=== PATIENT | female | born 1970 | race African-American/Black ===

== ENCOUNTER 2016-06-24 12:00 | Emergency (ER) | payer OTHER ==
[2016-06-24 12:06] VITALS: BP 168/104
[2016-06-24] MEDS ORDERED: HYDROCODONE/APAP 5/325MG TABLET. PO ONE (13:15)
--- NOTE | 2016-06-24 13:25 | PHYS DOC ---
Past Medical History Past Medical History: Hypertension, Other Additional Past Medical Histor: HTN Muscle Spasms Migranes left wound Past Surgical History: No Surgical History Alcohol Use: None Drug Use: None Adult General Chief Complaint Chief Complaint: LOWER EXT PAIN HPI HPI Patient is a 45 year old female presents to the emergency department after being seen at [facility] wound care today stating that she is having increased pain in her left lower leg. Patient states that she's had this wound for a while in which she was first being seen at [facility]. She was brought here to our emergency department earlier in the month of June for altered mental status. She was then referred at discharge to our wound care clinic. She been placed on Augmentin at discharge on June 13. Patient states that the Augmentin has caused her to have an upset stomach in which she's been unable to take the medication. Patient states she stopped taking the medication yesterday area she still has approximately 2 days with the medicine left and the antibiotics. Patient has also been seen by primary care physician on 06/16 and had some tramadol filled in which patient states is not taking care of the pain medication. Review of Systems Review of Systems Constitutional: Denies fever or chills [] Eyes: Denies change in visual acuity, redness, or eye pain [] HENT: Denies nasal congestion or sore throat [] Respiratory: Denies cough or shortness of breath [] Cardiovascular: No additional information not addressed in HPI [] GI: Denies abdominal pain, nausea, vomiting, bloody stools or diarrhea [] : Denies dysuria or hematuria [] Musculoskeletal: Denies back pain or joint pain [] Integument: Denies rash or skin lesions. Wound to the left lower leg with increased pain and discomfort. Neurologic: Denies headache, focal weakness or sensory changes [] Current Medications Current Medications Current Medications Medications (Trade) Dose Ordered Sig/German Start Time Stop Time Status Last Admin Dose Admin Acetaminophen/ Hydrocodone Bitart (Lortab 5/325) 2 tab 1X ONCE 06/24/16 13:15 06/24/16 13:16 DC 06/24/16 13:08 2 TAB Allergies Allergies Allergies Coded Allergies Type Severity Reaction Last Updated Verified sumatriptan Adverse Reaction Unknown 09/09/15 Yes Physical Exam Physical Exam Constitutional: Well developed, well nourished, no acute distress, non-toxic appearance. [] HENT: Normocephalic, atraumatic, bilateral external ears normal, oropharynx moist, no oral exudates, nose normal. [] Eyes: PERRLA, EOMI, conjunctiva normal, no discharge. [] Neck: Normal range of motion, no tenderness, supple, no stridor. [] Cardiovascular:Heart rate regular rhythm Lungs & Thorax: No respiratory distress noted. Skin: Warm, dry, no erythema, no rash. [] Back: No tenderness Extremities: No tenderness, no cyanosis, no clubbing, ROM intact, no edema. Patient with a significant wound to the left lower leg that had been seen at the wound care center today. No drainage or discharge coming from the site. Neurologic: Alert and oriented X 3, normal motor function, normal sensory function, no focal deficits noted. [] Psychologic: Affect normal, judgement normal, mood normal. [] Current Patient Data Vital Signs Vital Signs Date Time Temp Pulse Resp B/P Pulse Ox O2 Delivery O2 Flow Rate FiO2 06/24/16 12:06 98.6 93 18 100 Room Air 98.6 EKG EKG [] Radiology/Procedures Radiology/Procedures [] Course & Med Decision Making Course & Med Decision Making Pertinent Labs and Imaging studies reviewed. (See chart for details) Spoke with Dr. Garcia the wound care physician. He recommends that the patient continue with Augmentin. He also states that he has referred the patient back to her primary care physician for further pain control as she has been seeking pain medication from other physicians. Spoke with patient in regards to following up with her primary care physician in regards to further pain medication and pain management. Patient has tramadol at home in which she had filled on 411 and had enough for 30 days. Patient will be discharged home after receiving 2 hydrocodone's here in the emergency department. She'll be discharged home in stable condition with recommendations to use Aleve or ibuprofen for pain and discomfort also recommended elevation. Patient agrees with discharge instructions treatment regimens and follow-up recommendations. [] Dragon Disclaimer Dragon Disclaimer This electronic medical record was generated, in whole or in part, using a voice recognition dictation system. Departure Departure Impression: Primary Impression: Pain management Disposition: HOME, SELF-CARE Condition: STABLE Referrals: UNKNOWN PCP NAME (PCP) Patient Instructions: Chronic Pain Management-Brief Additional Instructions: Activity as tolerated. Medication as prescribed. You have been prescribed Augmentin when you were discharged on 06/[facility] would like you to continue taking the antibiotic. You were prescribed tramadol from a primary care physician on June 16. Continue with the pain medication as needed. You may also use Aleve or ibuprofen for pain. Elevation as much as possible. Follow-up through primary care physician within the next 3-5 days. Return back to emergency prior signs symptoms of become worse. BERNA COX OIL SPECULATOR Jun 24, 2016 13:25
== END 2016-06-24 13:32 | disposition home or self-care (01) ==
LOC: ER 12:00
DX: M79.662 Pain in left lower leg (principal); I10 Essential (primary) hypertension; G43.909 Migraine, unspecified, not intractable, without status migrainosus; Z88.8 Allergy status to other drugs, medicaments and biological substances
CPT/HCPCS: 99282

== ENCOUNTER → 2016-06-24 | Outpatient (CLI) | payer OTHER ==
[2016-06-13 16:35] VITALS: BP 152/110
[~2016-06-24] MED LIST: ACET-704 PO; AMLO5TAB2 PO; AMOX1TAB11 PO; BENA1TAB6 PO; CARI350T PO; CARV3.122 PO; CLOB15CR2 TP; COLL30OI TP; DOXY100C14 PO; GABA-586 PO; HYDR-971 PO; LISI1TAB7 PO; MUPI22OI2 TP; NAPR500T3 PO; NAPR550T PO; PREG50CA PO; PROP40TA PO; PROVENTIL HFA6.7 GM IH; SULF1TAB24 PO; SUMA50TA3 PO; TRAM50TA PO
== END | disposition home or self-care (01) ==
LOC: PMGWOUND 10:35
PROVIDERS: ATTEND Preventive Medicine Undersea and Hyperbaric Medicine
DX: S81.802D Unspecified open wound, left lower leg, subsequent encounter (principal); I10 Essential (primary) hypertension; X58.XXXD Exposure to other specified factors, subsequent encounter
CPT/HCPCS: 97597; 97598

== ENCOUNTER 2016-08-29 19:49 | Emergency (ER) | payer OTHER ==
[~2016-08-29] VITALS: Ht 170.2 cm; Wt 70.8 kg
[2016-08-29 19:54] VITALS: BP 140/83
--- NOTE | 2016-08-29 20:22 | PHYS DOC ---
Past Medical History Past Medical History: Hypertension, Other Additional Past Medical Histor: HTN Muscle Spasms Migranes left wound Past Surgical History: No Surgical History Alcohol Use: None Drug Use: None Adult General Chief Complaint Chief Complaint: MEDICATION REFILL HPI HPI Patient is a 45 year old female presents to the emergency department stating that last night she became lightheaded and dizzy at home and had poor her tramadol down the sink. Patient states that she has had no further lightheadedness and dizziness. She denies any syncopal episodes. Patient states that since she's not been taking her tramadol she has been hot and sweaty and has had a little bit of shakiness. Patient states that she has been on tramadol since she was 21 years old. Patient denies any fever, nausea or vomiting. She does however state that she's had some chills. Review of Systems Review of Systems Constitutional: Denies fever or chills [] Eyes: Denies change in visual acuity, redness, or eye pain [] HENT: Denies nasal congestion or sore throat [] Respiratory: Denies cough or shortness of breath [] Cardiovascular: No additional information not addressed in HPI [] GI: Denies abdominal pain, nausea, vomiting, bloody stools or diarrhea [] : Denies dysuria or hematuria [] Musculoskeletal: Denies back pain or joint pain [] Integument: Denies rash or skin lesions [] Neurologic: Denies headache, focal weakness or sensory changes [] Endocrine: Denies polyuria or polydipsia [] Patient states that she is having withdrawal symptoms from Ultram. Allergies Allergies Allergies Coded Allergies Type Severity Reaction Last Updated Verified sumatriptan Adverse Reaction Unknown 09/09/15 Yes Physical Exam Physical Exam Constitutional: Well developed, well nourished, no acute distress, non-toxic appearance. [] HENT: Normocephalic, atraumatic, bilateral external ears normal, oropharynx moist, no oral exudates, nose normal. [] Eyes: PERRLA, EOMI, conjunctiva normal, no discharge. [] Neck: Normal range of motion, no tenderness, supple, no stridor. [] Cardiovascular:Heart rate regular rhythm, no murmur [] Lungs & Thorax: Bilateral breath sounds clear to auscultation [] Skin: Warm, dry, no erythema, no rash. [] Back: No tenderness Extremities: No tenderness, no cyanosis, no clubbing, ROM intact, no edema. [] Neurologic: Alert and oriented X 3, normal motor function, normal sensory function, no focal deficits noted. [] Psychologic: Affect normal, judgement normal, mood normal. [] Current Patient Data Vital Signs Vital Signs Date Time Temp Pulse Resp B/P (MAP) Pulse Ox O2 Delivery O2 Flow Rate FiO2 08/29/16 19:54 98.6 70 16 97 Room Air 98.6 EKG EKG [] Radiology/Procedures Radiology/Procedures [] Course & Med Decision Making Course & Med Decision Making Pertinent Labs and Imaging studies reviewed. (See chart for details) Patient is alert and oriented at this time. She states that she has had a headache since she has not been taking the tramadol. She states that she has tried ibuprofen Tylenol and Excedrin with no relief. Patient was instructed we would provide her with Ativan here in the emergency department. With recommendations to follow up with her primary care physician on Wednesday. Patient was provided with signs and symptoms to return back to the emergency department. Patient will be discharged home in stable condition signs and symptoms to return back to the emergency department have been provided. [] Dragon Disclaimer Dragon Disclaimer This electronic medical record was generated, in whole or in part, using a voice recognition dictation system. Departure Departure Impression: Primary Impression: Medication refill Additional Impression: Medication withdrawal Disposition: HOME, SELF-CARE Condition: STABLE Referrals: NO PCP (PCP) Patient Instructions: Medication Refill, Emergency Department, Narcotic Withdrawal-Brief Additional Instructions: Activity as tolerated. Medications as prescribed. You have been provided Ativan here in the emergency department. Follow-up to primary care physician Wednesday. Return back to emergency prior signs and symptoms of become worse. Problem Qualifiers BERNA COX PROJECT BUYER Aug 29, 2016 20:22
[2016-08-29] MEDS ORDERED: LORazepam 1 MG TABLET PO ONE (20:30)
== END 2016-08-29 20:49 | disposition home or self-care (01) ==
LOC: ER 19:49
DX: Z76.0 Encounter for issue of repeat prescription (principal); F15.93 Other stimulant use, unspecified with withdrawal; R51 Headache; I10 Essential (primary) hypertension; Z88.8 Allergy status to other drugs, medicaments and biological substances
CPT/HCPCS: 99283

== ENCOUNTER 2016-08-31 06:11 | Emergency (ER) | payer OTHER ==
[~2016-08-31] VITALS: Ht 170.2 cm; Wt 70.8 kg
--- NOTE | 2016-08-31 06:22 | PHYS DOC ---
Past Medical History Past Medical History: Hypertension, Other Additional Past Medical Histor: HTN Muscle Spasms Migranes left wound Past Surgical History: No Surgical History Alcohol Use: None Drug Use: None Adult General Chief Complaint Chief Complaint: GENERALIZED BODY ACHES [facility] HPI Patient is a 45 year old -Iranian [place] female who presents with prescription refill. She states that she was here 2 nights ago and lost her prescription of tramadol down the sink when she is trying to take it. She states she felt very dizzy and when the dizziness resolved her pills fell out of her hand and down the sink. She states she can't get into see her primary care physician until September 09. She states she's been on tramadol since the age of 21 for her headaches and this is why she presents today. She states she's tried Tylenol, Excedrin, Advil without any relief. She states is her chronic headaches bitemporal area and then beside her ears. She states this headache that she has daily and that tramadol is the only thing that takes care of her headache. She states in the past she's been on oxycodone for back pain and this doesn't resolve her headaches it's only tramadol. She denies any fevers chills nausea or vomiting. She states when she was here the other day the nurse practitioner could not write a prescription for tramadol also she had come back this morning to get it. She denies any other symptoms such as fevers, chills, syncope, nuchal rigidity, confusion, chest pain abdominal pain or shortness of breath. Review of Systems Review of Systems Constitutional: Denies fever or chills [] Eyes: Denies change in visual acuity, redness, or eye pain [] HENT: Denies nasal congestion or sore throat [] Respiratory: Denies cough or shortness of breath [] Cardiovascular: No additional information not addressed in HPI [] GI: Denies abdominal pain, nausea, vomiting, bloody stools or diarrhea [] : Denies dysuria or hematuria [] Musculoskeletal: Denies back pain or joint pain [] Integument: Denies rash or skin lesions [] Neurologic: Denies focal weakness or sensory changes, positive for headaches Endocrine: Denies polyuria or polydipsia [] Current Medications Current Medications Current Medications Medications (Trade) Dose Ordered Sig/German Start Time Stop Time Status Last Admin Dose Admin Potassium Chloride (Klor-Con) 40 meq 1X ONCE 08/31/16 07:45 08/31/16 07:47 DC 08/31/16 07:50 40 MEQ Tramadol HCl (Ultram) 50 mg 1X ONCE 08/31/16 07:15 08/31/16 07:16 DC 08/31/16 07:12 50 MG Allergies Allergies Allergies Coded Allergies Type Severity Reaction Last Updated Verified sumatriptan Adverse Reaction Unknown 09/09/15 Yes Physical Exam Physical Exam Constitutional: Well developed, well nourished, no acute distress, non-toxic appearance. [] HENT: Normocephalic, atraumatic, bilateral external ears normal, oropharynx moist, no oral exudates, nose normal. [] Eyes: PERRLA, EOMI, conjunctiva normal, no discharge. [] Neck: Normal range of motion, no tenderness, supple, no stridor. [] Cardiovascular:Heart rate regular rhythm, no murmur [] Lungs & Thorax: Bilateral breath sounds clear to auscultation [] Abdomen: Bowel sounds normal, soft, no tenderness, no masses, no pulsatile masses. [] Skin: Warm, dry, no erythema, no rash. [] Back: No tenderness, no CVA tenderness. [] Extremities: No tenderness, no cyanosis, no clubbing, ROM intact, no edema. [] Neurologic: Alert and oriented X 3, normal motor function, normal sensory function, no focal deficits noted. [] Psychologic: Affect normal, judgement normal, mood normal. [] Current Patient Data Vital Signs Vital Signs Date Time Temp Pulse Resp B/P (MAP) Pulse Ox O2 Delivery O2 Flow Rate FiO2 08/31/16 07:12 18 98 08/31/16 07:11 91 159/106 (123) Room Air 08/31/16 06:17 98.2 98.2 Lab Values Laboratory Tests Test 08/31/16 05:51 08/31/16 06:41 08/31/16 06:50 POC Urine HCG, Qualitative Hcg negative (Negative) Urine Color Straw Urine Clarity Clear Urine pH 7.0 Urine Specific [place] 1.010 Urine Protein 100 mg/dL (NEG-TRACE) Urine Glucose (UA) Negative mg/dL (NEG) Urine Ketones (Stick) Negative mg/dL (NEG) Urine Blood Negative (NEG) Urine Nitrite Negative (NEG) Urine Bilirubin Negative (NEG) Urine Urobilinogen Dipstick 0.2 mg/dL (0.2 mg/dL) Urine Leukocyte Esterase Negative (NEG) Urine RBC 0 /HPF (0-2) Urine WBC 0 /HPF (0-4) Urine Squamous Epithelial Cells Few /LPF Urine Bacteria 0 /HPF (0-FEW) Urine Opiates Screen Neg (NEG) Urine Methadone Screen Neg (NEG) Urine Barbiturates Neg (NEG) Urine Phencyclidine Screen Neg (NEG) Urine Amphetamine/Methamphetamine Neg (NEG) Urine Benzodiazepines Screen Neg (NEG) Urine Cocaine Screen Neg (NEG) Urine Cannabinoids Screen Neg (NEG) Urine Ethyl Alcohol Neg (NEG) White Blood Count 13.3 x10^3/uL (4.0-11.0) H Red Blood Count 4.04 x10^6/uL (3.50-5.40) Hemoglobin 12.7 g/dL (12.0-15.5) Hematocrit 38.1 % (36.0-47.0) Mean Corpuscular Volume 95 fL (79-100) Mean Corpuscular Hemoglobin 31 pg (25-35) Mean Corpuscular Hemoglobin Concent 33 g/dL (31-37) Red Cell Distribution Width 15.3 % (11.5-14.5) H Platelet Count 308 x10^3/uL (140-400) Neutrophils (%) (Auto) 75 % (31-73) H Lymphocytes (%) (Auto) 15 % (24-48) L Monocytes (%) (Auto) 8 % (0-9) Eosinophils (%) (Auto) 2 % (0-3) Basophils (%) (Auto) 1 % (0-3) Neutrophils # (Auto) 10.0 x10^3uL (1.8-7.7) H Lymphocytes # (Auto) 2.0 x10^3/uL (1.0-4.8) Monocytes # (Auto) 1.0 x10^3/uL (0.0-1.1) Eosinophils # (Auto) 0.2 x10^3/uL (0.0-0.7) Basophils # (Auto) 0.1 x10^3/uL (0.0-0.2) Sodium Level 139 mmol/L (136-145) Potassium Level 2.5 mmol/L (3.5-5.1) *L Chloride Level 99 mmol/L (98-107) Carbon Dioxide Level 27 mmol/L (21-32) Anion Gap 13 (6-14) Blood Urea Nitrogen 8 mg/dL (7-20) Creatinine 1.0 mg/dL (0.6-1.0) Estimated GFR (Cockcroft-Gault) 72.5 Glucose Level 110 mg/dL (70-99) H Calcium Level 10.3 mg/dL (8.5-10.1) H Magnesium Level 2.0 mg/dL (1.8-2.4) Total Bilirubin 0.4 mg/dL (0.2-1.0) Direct Bilirubin 0.1 mg/dL (0.0-0.2) Aspartate Amino Transferase (AST) 18 U/L (15-37) Alanine Aminotransferase (ALT) 12 U/L (14-59) L Alkaline Phosphatase 80 U/L (46-116) Creatine Kinase 97 U/L (26-192) Creatine Kinase MB (Mass) 0.6 ng/mL (0.0-3.6) Creatine Kinase MB Relative Index 0.6 % (0-4) Troponin I Quantitative 0.046 ng/mL (0.000-0.055) UU-Kyv-J-Type Natriuretic Peptide 91 pg/mL (0-124) Total Protein 9.6 g/dL (6.4-8.2) H Albumin 3.6 g/dL (3.4-5.0) Lipase 101 U/L (73-393) Thyroid Stimulating Hormone (TSH) 1.415 uIU/mL (0.358-3.74) Laboratory Tests 08/31/16 06:50 Laboratory Tests 08/31/16 06:50 EKG EKG EKG shows sinus tachycardia with a rate of 107 bpm with SC depressions in V4 V5 V6, T-wave inversions in 23 aVF, normal axis, QTC 400 ms, EKG similar to previous 3 EKGs performed here. Radiology/Procedures Radiology/Procedures [] Impressions: Hypokalemia Headache Course & Med Decision Making Course & Med Decision Making Pertinent Labs and Imaging studies reviewed. (See chart for details) Patient presents with pressures refill was tachycardic in the 130s on a initially presented. EKG shows a rate of 107 and she is only complaining of her mild headache and being out of tramadol. Her potassium is 2.5 with a normal magnesium. I have recommended admission for potassium replacement the patient is refusing. She received 40 mEq by mouth of potassium chloride and is being discharged with a prescription for additional 40 mEq of potassium chloride tomorrow. Patient is instructed return back to ER if she changes her mind. She is also instructed return tomorrow to the ER for repeat BMP. Her tramadol was also filled with 30 tablets of 50 mg every 6 hours when necessary pain/headache. Dragon Disclaimer Dragon Disclaimer This electronic medical record was generated, in whole or in part, using a voice recognition dictation system. Departure Departure Impression: Primary Impression: Hypokalemia Disposition: AGAINST MEDICAL ADVICE Condition: STABLE Referrals: NO PCP (PCP) Patient Instructions: Hypokalemia Additional Instructions: Your potassium level is critically low. I recommend that he be admitted to the hospital and have this replaced. You are refusing to be admitted and are leaving AGAINST MEDICAL ADVICE. Your potassium level is seriously low and you can have serious complications if this isn't replaced appropriately and properly. Since you refusing to be admitted the hospital I did give you some oral potassium pills to take and a prescription to take tomorrow also. You should return tomorrow to have your labs repeated in the ER. Return sooner if you feel lightheaded, dizzy, chest pain, have confusion or any other concerns. Scripts Tramadol Hcl (TRAMADOL HCL) 50 Mg Tablet 1 TAB PO PRN Q6HRS Y for HEADACHE, #30 TAB Prov: CLAY MONTANO MD 08/31/16 Potassium Chloride (POTASSIUM CHLORIDE) 20 Meq Tablet.er 40 MEQ PO 1X, #2 TAB.SR Prov: CLAY MONTANO MD 08/31/16 CLAY MONTANO MD Aug 31, 2016 06:22
--- NOTE | 2016-08-31 06:46 | EKG ---
[facility] [address] [place] [address] Test Date: 2016-08-31 Test Time: 06:32:56 Pat Name: SONDRA TENORIO Department: Room: Gender: F Collection Administrator: : 1970 Requested By: CLAY MONTANO Order Number: [id number] Reading MD: Simran Levine Measurements Intervals [place] Rate: 107 P: 65 IN: 118 QRS: 59 QRSD: 90 T: -92 QT: 296 QTc: 400 Interpretive Statements SINUS TACHYCARDIA LEFT ATRIAL ABNORMALITY LVH WITH REPOLARIZATION ABNORMALITY ALSO CONSIDER MYOCARDIAL ISCHEMIA Electronically Signed On 08-31-2016 20:55:31 CDT by Simran Levine
[2016-08-31 07:02] LABS: BASO # 0.1 x10^3/uL (0.0-0.2); BASO % 1 % (0-3); EOS % 2 % (0-3); HEMATOCRIT 38.1 % (36.0-47.0); HEMOGLOBIN 12.7 g/dL (12.0-15.5); LYMPH % 15 % (24-48); MEAN CORPUSCULAR HEMOGLOBIN 31 pg (25-35); MEAN CORPUSCULAR HGB CONC 33 g/dL (31-37); MEAN CORPUSCULAR VOLUME 95 fL (79-100); MONO % 8 % (0-9); NEUT % 75 % (31-73); PLATELET COUNT 308 x10^3/uL (140-400); RED BLOOD COUNT 4.04 x10^6/uL (3.50-5.40); RED CELL DISTRIBUTION WIDTH 15.3 % (11.5-14.5); WHITE BLOOD COUNT 13.3 x10^3/uL (4.0-11.0)
[2016-08-31 07:11] VITALS: BP 159/106
[2016-08-31 07:12] LABS: BACTERIA,URINE 0 /HPF (0-FEW); BARBITURATES NEG (NEG); BENZODIAZEPINES NEG (NEG); BILIRUBIN,URINE NEGATIVE (NEG); CANNABINOIDS NEG (NEG); COCAINE NEG (NEG); GLUCOSE,URINE NEGATIVE (NEG); METHADONE NEG (NEG); NITRITE,URINE NEGATIVE (NEG); OPIATES NEG (NEG); PHENCYCLIDINE NEG (NEG); PROTEIN,URINE 100 mg/dL (NEG-TRACE); RBC,URINE 0 /HPF (0-2); SQUAMOUS EPITHELIAL CELL,UR FEW /LPF; UROBILINOGEN,URINE 0.2 mg/dL (0.2 mg/dL); WBC,URINE 0 /HPF (0-4)
[2016-08-31] MEDS ORDERED: traMADol 50 MG TABLET PO ONE (07:15)
[2016-08-31 07:23] LABS: ALBUMIN 3.6 g/dL (3.4-5.0); CALCIUM 10.3 mg/dL (8.5-10.1); DIRECT BILIRUBIN 0.1 mg/dL (0.0-0.2); GFR 72.5; TOTAL BILIRUBIN 0.4 mg/dL (0.2-1.0); TOTAL PROTEIN 9.6 g/dL (6.4-8.2)
[2016-08-31 07:26] LABS: CKMB MASS 0.6 ng/mL (0.0-3.6); POTASSIUM 2.5 mmol/L (3.5-5.1)
[2016-08-31] MEDS ORDERED: POTASSIUM CHLORIDE 20 MEQ TABLET.ER. PO ONE (07:45)
[2016-08-31] MEDS ORDERED: TRAM50TA PO (08:04)
[2016-08-31] MEDS ORDERED: POTA20TA82 PO (08:04)
[2016-08-31 09:43] LABS: PLT ESTIMATE ADEQUATE (ADEQUATE)
== END 2016-08-31 08:13 | disposition home or self-care (01) ==
LOC: ER 06:11
DX: Z76.0 Encounter for issue of repeat prescription (principal); E87.6 Hypokalemia; M54.9 Dorsalgia, unspecified; R51 Headache; R00.0 Tachycardia, unspecified; I10 Essential (primary) hypertension; G43.909 Migraine, unspecified, not intractable, without status migrainosus
CPT/HCPCS: 36415; 80048; 80076; 80305; 80320; 81001; 81025; 82553; 83690; 83735; 83880; 84443; 84484; 85007; 85027; 93005; G0481; 99285-25

== ENCOUNTER 2016-10-02 23:05 | Emergency (ER) | payer OTHER ==
[~2016-10-02] VITALS: Ht 170.2 cm; Wt 70.8 kg
[~2016-10-02 23:05] MED LIST changes: +POTA20TA82 PO
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
[2016-10-02] MEDS ORDERED: traMADol 50 MG TABLET PO ONE (23:55)
[2016-10-02] MEDS ORDERED: PROP80CA3 PO (23:55)
[2016-10-02] MEDS ORDERED: TRAM-48 PO (23:55)
[2016-10-03] VITALS: BP 189/102
[2016-10-03] MEDS ORDERED: PROPRANOLOL 40 MG TABLET. PO ONE
== END 2016-10-03 00:03 | disposition home or self-care (01) ==
LOC: ER 23:05
DX: Z76.0 Encounter for issue of repeat prescription (principal); I10 Essential (primary) hypertension; G43.909 Migraine, unspecified, not intractable, without status migrainosus; Z88.8 Allergy status to other drugs, medicaments and biological substances
CPT/HCPCS: 99283

== ENCOUNTER → 2016-10-23 | Outpatient (CLI) | payer OTHER ==
[2016-10-21 14:49] VITALS: BP 127/78
[~2016-10-23] MED LIST changes: +CEPH250C PO; +FLUC100T PO; +METR500T PO; +OXYC5TAB PO; +PROP80CA3 PO; +TRAM-48 PO
== END | disposition home or self-care (01) ==
LOC: PMGWOUND 10:39
PROVIDERS: ATTEND Preventive Medicine Undersea and Hyperbaric Medicine
DX: I87.312 Chronic venous hypertension (idiopathic) with ulcer of left lower extremity (principal); L97.821 Non-pressure chronic ulcer of other part of left lower leg limited to breakdown of skin; I73.9 Peripheral vascular disease, unspecified; G62.9 Polyneuropathy, unspecified; J45.909 Unspecified asthma, uncomplicated; M19.90 Unspecified osteoarthritis, unspecified site; F15.90 Other stimulant use, unspecified, uncomplicated; Z88.8 Allergy status to other drugs, medicaments and biological substances
CPT/HCPCS: 97597; 97598

== ENCOUNTER → 2016-11-11 | Outpatient (CLI) | payer OTHER ==
[2016-10-21 14:49] VITALS: BP 127/78
[~2016-11-11] MED LIST changes: +NAPR-682 PO; -NAPR550T PO; -OXYC5TAB PO; +OXYC5TAB95 PO
== END | disposition home or self-care (01) ==
LOC: PMGWOUND 09:46
PROVIDERS: ATTEND Preventive Medicine Undersea and Hyperbaric Medicine
DX: I87.312 Chronic venous hypertension (idiopathic) with ulcer of left lower extremity (principal); L97.821 Non-pressure chronic ulcer of other part of left lower leg limited to breakdown of skin; I73.9 Peripheral vascular disease, unspecified; J45.909 Unspecified asthma, uncomplicated; G62.9 Polyneuropathy, unspecified; M19.90 Unspecified osteoarthritis, unspecified site; F15.90 Other stimulant use, unspecified, uncomplicated; Z86.19 Personal history of other infectious and parasitic diseases
CPT/HCPCS: 29581

== ENCOUNTER 2016-11-21 17:31 | Emergency (ER) | payer OTHER ==
[~2016-11-21] VITALS: Ht 170.2 cm; Wt 66.2 kg
--- NOTE | 2016-11-21 18:45 | PHYS DOC ---
Past Medical History Past Medical History: Hypertension, Migraines, Other Additional Past Medical Histor: Muscle Spasms, left leg wound Additional Past Surgical Histo: wound debridment L leg Alcohol Use: None Drug Use: None Adult General Chief Complaint Chief Complaint: WITHDRAWL HPI HPI Patient is a 46 year old female who presents with need for medication refill. He takes tramadol chronically and has been on it for months. She took her last pill yesterday. She has an appt on Wednesday to see the surgeon for her chronic left lower leg wound. She also takes the pain meds for chronic left hip pain and radiculopathy. No new complaints. No fever. No loss control of bowels or bladder, no leg weakness, no saddle anesthesia. Review of Systems Review of Systems Constitutional: Denies fever or chills Musculoskeletal: POS left buttock pain Integument: Denies rash. chronic left lower leg wound Neurologic: Denies headache, focal weakness or sensory changes Current Medications Current Medications Current Medications Medications (Trade) Dose Ordered Sig/German Start Time Stop Time Status Last Admin Dose Admin Ketorolac Tromethamine (Toradol Im) 60 mg 1X ONCE 11/21/16 19:00 11/21/16 19:01 DC 11/21/16 18:51 60 MG Neomycin/ Polymyxin/ Bacitracin (Triple Antibiotic Ointment) 1 pkt STK-MED ONCE 11/21/16 19:29 11/21/16 19:30 DC Tramadol HCl (Ultram) 50 mg 1X ONCE 11/21/16 19:00 11/21/16 19:01 DC 11/21/16 18:51 50 MG Allergies Allergies Allergies Coded Allergies Type Severity Reaction Last Updated Verified sumatriptan Adverse Reaction Unknown 09/09/15 Yes Physical Exam Physical Exam Constitutional: Well developed, well nourished, no acute distress, non-toxic appearance. Cardiovascular:Heart rate regular rhythm, no murmur Lungs & Thorax: Bilateral breath sounds clear to auscultation Abdomen: Bowel sounds normal, soft, no tenderness, no masses, no pulsatile masses. Skin: Warm, dry, no erythema, no rash. Chronic wound to left lower leg with good granulation tissue. Back: No tenderness, no CVA tenderness. Extremities: No tenderness, no cyanosis, no clubbing, ROM intact, (see skin exam ) Neurologic: Alert and oriented X 3, normal motor function, normal sensory function, no focal deficits noted. Psychologic: Affect normal, judgement normal, mood normal. Current Patient Data Vital Signs Vital Signs Date Time Temp Pulse Resp B/P (MAP) Pulse Ox O2 Delivery O2 Flow Rate FiO2 11/21/16 19:39 98.0 95 20 137/89 (105) 99 Room Air 98.0 Course & Med Decision Making Course & Med Decision Making Evaluated patient upon arrival. She is not in active withdrawal at this time. No evidence of cauda equina syndrome .Will dose here with Toradol IM and tramadol po. Rx for #30 tramadol provided. I have spoken with the patient and/or caregivers. I have explained the patient' s condition, diagnosis and treatment plan based on the information available to me at this time. I have answered the patient's and/or caregiver's questions and addressed any concerns. The patient and/or caregivers have as good an understanding of the patient's diagnosis, condition and treatment plan as can be expected at this point. The patient's condition is stable and appropriate for discharge from the emergency department. The patient will pursue further outpatient evaluation with the primary care physician or other designated or consulting physician as outlined in the discharge instructions. The patient and/or caregivers are agreeable to this plan of care and follow-up instructions have been explained in detail. The patient and/or caregivers have received these instructions in written format and have expressed an understanding of the discharge instructions. The patient and/or caregivers are aware that any significant change in condition or worsening of symptoms should prompt an immediate return to this or the closest emergency department or a call to 911. Dragon Disclaimer Dragon Disclaimer This electronic medical record was generated, in whole or in part, using a voice recognition dictation system. Departure Departure Impression: Primary Impression: Medication refill Additional Impression: Chronic pain syndrome Disposition: 01 HOME, SELF-CARE Condition: STABLE Referrals: NO PCP (PCP) Patient Instructions: Chronic Pain Scripts Tramadol Hcl/Acetaminophen (TRAMADOL-ACETAMINOPHN 37.5-325) 1 Each Tablet 1 TAB PO Q4-6HRS, #30 TAB Prov: KATINA ANTHONY MD 11/21/16 Problem Qualifiers KATINA ANTHONY MD Nov 21, 2016 18:45
[2016-11-21] MEDS ORDERED: traMADol 50 MG TABLET PO ONE (19:00)
[2016-11-21] MEDS ORDERED: KETOROLAC 60 MG/2 ML INJ. IM ONE (19:00)
[2016-11-21] MEDS ORDERED: TRAM1TAB4 PO (19:13)
[2016-11-21] MEDS ORDERED: NEOMY/BACITR/POLYMYXIN OINT PACKET. TP ONE (19:29)
[2016-11-21 19:39] VITALS: BP 137/89
== END 2016-11-21 19:41 | disposition home or self-care (01) ==
LOC: ER 17:31
DX: Z76.0 Encounter for issue of repeat prescription (principal); G89.4 Chronic pain syndrome; I10 Essential (primary) hypertension; G43.909 Migraine, unspecified, not intractable, without status migrainosus; Z88.8 Allergy status to other drugs, medicaments and biological substances
CPT/HCPCS: 96372; 99284; J1885

== ENCOUNTER 2016-12-01 21:53 | Inpatient (IN) | payer OTHER ==
[~2016-12-01] VITALS: Ht 170.2 cm; Wt 68.0 kg
[~2016-12-01 21:53] MED LIST changes: -NAPR500T3 PO; +NAPR500T4 PO; +TRAM1TAB4 PO
[2016-12-01] MEDS: fentaNYL PF VIAL 100 MCG/2 ML VIAL IV PRN ×2 (22:58→23:29)
[2016-12-01 23:41] LABS: HEMATOCRIT 29.9 % (36.0-47.0); HEMOGLOBIN 10.1 g/dL (12.0-15.5)
[2016-12-01 23:42] LABS: BASO # 0.1 x10^3/uL (0.0-0.2); BASO % 1 % (0-3); EOS % 3 % (0-3); LYMPH # 2.2 x10^3/uL (1.0-4.8); LYMPH % 17 % (24-48); MEAN CORPUSCULAR HEMOGLOBIN 33 pg (25-35); MEAN CORPUSCULAR HGB CONC 34 g/dL (31-37); MEAN CORPUSCULAR VOLUME 97 fL (79-100); MONO % 5 % (0-9); NEUT % 75 % (31-73); PLATELET COUNT 445 x10^3/uL (140-400); RED CELL DISTRIBUTION WIDTH 17.7 % (11.5-14.5)
[2016-12-01 23:58] LABS: ALBUMIN 3.5 g/dL (3.4-5.0); ALBUMIN/GLOBULIN RATIO 0.5 (1.0-1.7); CALCIUM 10.9 mg/dL (8.5-10.1); CREATININE 0.9 mg/dL (0.6-1.0); GFR 81.6; TOTAL BILIRUBIN 0.4 mg/dL (0.2-1.0); TOTAL PROTEIN 10.1 g/dL (6.4-8.2)
[2016-12-02] VITALS (11 sets, daily range): BP systolic 103–186; BP diastolic 48–112
[2016-12-02 00:08] LABS: POTASSIUM 2.4 mmol/L (3.5-5.1)
[2016-12-02] MEDS: HYDROmorphone 2 MG/ML VIAL IV/SQ PRN ×2 (00:08→01:41)
[2016-12-02] MEDS ORDERED: DEXTROSE 50% 25 GM / 50ML DISP.SYRIN. IV PRN (01:30)
[2016-12-02] MEDS ORDERED: ACETAMINOPHEN 325 MG TABLET. PO PRN (01:30)
[2016-12-02] MEDS ORDERED: ONDANSETRON PF 4 MG/2 ML VIAL. IV PRN ×3 (01:45→16:00)
[2016-12-02] MEDS ORDERED: MORPHINE SULFATE 4 MG/ML DISP.SYRIN. IV PRN ×2 (01:45→09:00)
--- NOTE | 2016-12-02 01:53 | RAD ---
INDICATION: LT LOWER LEG PAIN NON HEALING WOUND COMPARISON: October 19, 2016 Spectral Doppler, color and grayscale ultrasound images obtained left leg arterial system. FINDINGS: Biphasic or triphasic waveform seen in the left common femoral and superficial femoral artery. Popliteal artery has a borderline monophasic waveform. Anterior and posterior tibial as well as peroneal and dorsalis pedis arteries have a monophasic waveform. IMPRESSION: Relatively monophasic waveforms are seen within the left leg extending from the popliteal artery through the calf. This could be secondary to more proximal regions of narrowing and flow alteration. Electronically signed by: Nixon Rivera MD (12/02/2016 1:50 AM) [facility]
[2016-12-02] MEDS ORDERED: CLINDAMYCIN 600MG PREMIX 50 ML IV ONE (02:00)
[2016-12-02] MEDS ORDERED: POTASSIUM CHLORIDE 20 MEQ/15 ML ORAL LIQUID. PO ONE (02:00)
[2016-12-02] MEDS: POTASSIUM CL 40MEQ IN 0.9%NACL 1,000 ML IV SCH ×2 (02:05→18:02)
--- NOTE | 2016-12-02 02:36 | ED.ADGEN ---
Past Medical History Past Medical History: Hypertension, Migraines, Other Additional Past Medical Histor: Muscle Spasms, left leg wound Past Surgical History: No Surgical History Additional Past Surgical Histo: wound debridment L leg Alcohol Use: None Drug Use: None Adult General Chief Complaint Chief Complaint: WOUND CHECK HPI HPI Patient is a 46 year old woman, history of hypertension, migraine headaches, chronic wound to the left lower extremity, presents to the emergency department with complaint of worsening pain, swelling and drainage from the left lower extremity. Patient states that the pain is worsening over the past several days , states she has not followed up with the wound clinic in about a month. She states that the wound has become progressively worse during that time, and is currently weeping and oozing. Patient denies any new injuries, any fevers or chills, any nausea or vomiting. Noted to have a large area of denuded skin with some granulation tissue, noted to be purulent smelling, and with yellow drainage. Located in the medial aspect the left lower extremity. Patient states that this initially occurred after "I wish my legs I cut myself". Patient was previously admitted to the hospital and treated in June for a wound infection. Patient states that she was seen by her surgeon, Dr. Salazar about a month ago. Patient is crying due to pain upon arrival to the emergency department. She states she has not taking any medication for pain prior to coming to the ED. Review of Systems Review of Systems Constitutional: Denies fever or chills. [] Eyes: Denies change in visual acuity. [] HENT: Denies nasal congestion or sore throat. [] Respiratory: Denies cough or shortness of breath. [] Cardiovascular: Denies chest pain or edema. [] GI: Denies abdominal pain, nausea, vomiting, bloody stools or diarrhea. [] : Denies dysuria. [] Musculoskeletal: Denies back pain, and planing of pain swelling and drainage from the left lower extremity, with worsening of her chronic wound. Integument: Denies rash. [] Neurologic: Denies headache, focal weakness or sensory changes. [] Endocrine: Denies polyuria or polydipsia. [] Lymphatic: Denies swollen glands. [] Psychiatric: Denies depression or anxiety. [] Current Medications Current Medications Current Medications Medications (Trade) Dose Ordered Sig/German Start Time Stop Time Status Last Admin Dose Admin Fentanyl Citrate (Fentanyl 2ml Vial) 25 mcg PRN Q15MIN PRN 12/01/16 22:30 12/02/16 22:29 12/01/16 23:29 25 MCG Hydromorphone HCl (Dilaudid) 0.5 mg PRN Q15MIN PRN 12/02/16 00:00 12/02/16 23:59 12/02/16 01:41 0.5 MG Allergies Allergies Allergies Coded Allergies Type Severity Reaction Last Updated Verified sumatriptan Adverse Reaction Unknown 09/09/15 Yes Physical Exam Physical Exam Constitutional: Well developed, well nourished, no acute distress, non-toxic appearance. [] HENT: Normocephalic, atraumatic, bilateral external ears normal, oropharynx moist, no oral exudates, nose normal. [] Eyes: PERRLA, EOMI, conjunctiva normal, no discharge. [] Neck: Normal range of motion, no tenderness, supple, no stridor. [] Cardiovascular:Heart rate regular rhythm, no murmur, S1, S2, no rubs or gallops. Lungs & Thorax: Bilateral breath sounds clear to auscultation, no wheezing, rhonchi, rales. [] Abdomen: Bowel sounds normal, soft, , no rebound, rigidity, guarding, no tenderness, no masses, no pulsatile masses. [] Skin: Warm, dry, no erythema, no rash. [] Back: No tenderness, no CVA tenderness. [] Extremities: Patient with a 14 cm x 9 cm area of excoriation with granulation tissue noted, central area over the medial malleolus noted to be boggy, soft, with yellow drainage, and a purulent odor, patient discretely tender throughout this region, unable to palpate distal pulses on the left dorsalis pedis. Surrounding skin is dry, and firm. No abscess formation identified aside from the boggy area itches consistent with possible cellulitis, no active draining discrete abscesses identified, patient with oozing and drainage from the entire area. No other abnormalities identified and examination. Neurologic: Alert and oriented X 3, normal motor function, normal sensory function, no focal deficits noted. [] Psychologic: Affect normal, judgement normal, mood normal. [] Current Patient Data Vital Signs Vital Signs Date Time Temp Pulse Resp B/P (MAP) Pulse Ox O2 Delivery O2 Flow Rate FiO2 12/02/16 00:00 96 187/112 (137) 97 Room Air 12/01/16 22:58 20 12/01/16 22:45 97.9 97.9 Lab Values Laboratory Tests Test 12/01/16 23:30 White Blood Count 13.0 x10^3/uL (4.0-11.0) H Red Blood Count 3.10 x10^6/uL (3.50-5.40) L Hemoglobin 10.1 g/dL (12.0-15.5) L Hematocrit 29.9 % (36.0-47.0) L Mean Corpuscular Volume 97 fL (79-100) Mean Corpuscular Hemoglobin 33 pg (25-35) Mean Corpuscular Hemoglobin Concent 34 g/dL (31-37) Red Cell Distribution Width 17.7 % (11.5-14.5) H Platelet Count 445 x10^3/uL (140-400) H Neutrophils (%) (Auto) 75 % (31-73) H Lymphocytes (%) (Auto) 17 % (24-48) L Monocytes (%) (Auto) 5 % (0-9) Eosinophils (%) (Auto) 3 % (0-3) Basophils (%) (Auto) 1 % (0-3) Neutrophils # (Auto) 9.7 x10^3uL (1.8-7.7) H Lymphocytes # (Auto) 2.2 x10^3/uL (1.0-4.8) Monocytes # (Auto) 0.6 x10^3/uL (0.0-1.1) Eosinophils # (Auto) 0.4 x10^3/uL (0.0-0.7) Basophils # (Auto) 0.1 x10^3/uL (0.0-0.2) Sodium Level 136 mmol/L (136-145) Potassium Level 2.4 mmol/L (3.5-5.1) *L Chloride Level 96 mmol/L (98-107) L Carbon Dioxide Level 28 mmol/L (21-32) Anion Gap 12 (6-14) Blood Urea Nitrogen 15 mg/dL (7-20) Creatinine 0.9 mg/dL (0.6-1.0) Estimated GFR (Cockcroft-Gault) 81.6 BUN/Creatinine Ratio 17 (6-20) Glucose Level 93 mg/dL (70-99) Calcium Level 10.9 mg/dL (8.5-10.1) H Total Bilirubin 0.4 mg/dL (0.2-1.0) Aspartate Amino Transferase (AST) 16 U/L (15-37) Alanine Aminotransferase (ALT) 17 U/L (14-59) Alkaline Phosphatase 74 U/L (46-116) Total Protein 10.1 g/dL (6.4-8.2) H Albumin 3.5 g/dL (3.4-5.0) Albumin/Globulin Ratio 0.5 (1.0-1.7) L Laboratory Tests 12/01/16 23:30 Laboratory Tests 12/01/16 23:30 EKG EKG EC: Sinus rhythm, heart rate 84 beats/minute, upright axis, QTC is prolonged at 526, NV 1:30, QRS of 94, patient with contour normality is noted in the anterior lateral leads, no ST elevations or depressions, abnormal ECG, does not meet STEMI criteria. As interpreted by me.[] Radiology/Procedures Radiology/Procedures Ankle x-ray: Three-view: Patient noted to have cobblestoning of the skin noted, consistent with overlying cellulitis and soft tissue changes, no evidence of tracking, foreign body or other discrete changes, no evidence of bone abdomen is. As interviewed by me.[] Impressions: [facility] [address] [place], [place] [id number] IMAGING REPORT Signed PATIENT: SONDRA TENORIO ACCOUNT: [id number] : 1970 LOCATION: [address] [place] [address] AGE: 46 SEX: F EXAM STATUS: ADM IN ORD. PHYSICIAN: FREDDIE BAPTISTE DO REASON: Pain/swelling/unable to dopple pulse PROCEDURE: ARTERIAL STUDY LOWER EXT LEFT INDICATION: LT LOWER LEG PAIN NON HEALING WOUND COMPARISON: October 19, 2016 Spectral Doppler, color and grayscale ultrasound images obtained left leg arterial system. FINDINGS: Biphasic or triphasic waveform seen in the left common femoral and superficial femoral artery. Popliteal artery has a borderline monophasic waveform. Anterior and posterior tibial as well as peroneal and dorsalis pedis arteries have a monophasic waveform. IMPRESSION: Relatively monophasic waveforms are seen within the left leg extending from the popliteal artery through the calf. This could be secondary to more proximal regions of narrowing and flow alteration. Electronically signed by: Kassi Terry MD (12/02/2016 1:50 AM) [facility] DICTATED and SIGNED BY: KASSI TERRY MD DATE: 12/02/16 0145 CC: FREDDIE BAPTISTE DO; NO PCP; PAIGE KHAN MD ~ Course & Med Decision Making Course & Med Decision Making Pertinent Labs and Imaging studies reviewed. (See chart for details) Patient with evidence of worsening chronic infection of the left lower extremity , concern for active infection, patient with palpable unable to palpate pulses, history of Doppler obtained reveals monophasic waveforms, but no evidence of discrete occlusion. Patient's auditory studies not reveal evidence of leukocytosis or left shift, however due to the examination, patient was initiated on vancomycin and clindamycin and the ED, patient with potassium of 2.4 noted, received oral and IV repletion, ECG does not reveal any evidence of acutely concerning findings aside from a prolonged QTc. Findings as above discussed with Dr. Jacome [facility] medicine, patient accepted to her service as a full admission with consultation placed for Dr. Salazar of general surgery. Bridge orders entered, including morning laboratory studies, continue pain medication, and for continued monitoring. Patient transferred to the floor without issue. Dragon Disclaimer Dragon Disclaimer This electronic medical record was generated, in whole or in part, using a voice recognition dictation system. Departure Impression: Primary Impression: Leg wound, left Disposition: ADMITTED INPATIENT Admitting Physician: Paige Khan Condition: IMPROVED FREDDIE BAPTISTE DO Dec 02, 2016 02:36
[2016-12-02] MEDS: VANCOMYCIN PER PHARMACY MC PRN ×2 (02:54→14:40)
[2016-12-02] MEDS ORDERED: VANCOMYCIN 1.5 GM in IV NORMAL SALINE 500ML BAG 500 ML IV ONE (03:00)
[2016-12-02] MEDS ORDERED: cloNIDine HCL 0.1 MG TABLET PO PRN (04:00)
[2016-12-02] MEDS ORDERED: HYDROmorphone 2 MG/ML VIAL IV PRN (04:00)
[2016-12-02] MEDS ORDERED: fentaNYL PF VIAL 100 MCG/2 ML VIAL IV PRN ×3 (04:00→16:00)
[2016-12-02] MEDS ORDERED: LABETALOL 20 MG/4 ML DISP.SYRIN. IVP PRN (04:45)
--- NOTE | 2016-12-02 06:21 | EKG ---
[facility] [address] [place] [address] Test Date: 2016-12-02 Test Time: 02:14:14 Pat Name: SONDRA TENORIO Department: Room: 422 Gender: F Information Resources Manager: ASHLYN : 1970 Requested By: FREDDIE BAPTISTE Order Number: [id number] Reading MD: Carlos Pickens Measurements Intervals [place] Rate: 84 P: 90 IL: 130 QRS: 57 QRSD: 94 T: 40 QT: 442 QTc: 526 Interpretive Statements SINUS RHYTHM QRS(T) CONTOUR ABNORMALITY CANNOT RULE OUT ANTEROLATERAL MYOCARDIAL DAMAGE PROLONGED QT RI6.01 Unconfirmed report Electronically Signed On 12-11-2016 12:48:57 CDT by Carlos Pickens
--- NOTE | 2016-12-02 07:39 | RAD ---
Examination: 3 views of the left ankle History: History of wound, pain Comparison: None available Findings: The alignment of the ankle joint grossly appears unremarkable. There is no acute fracture or dislocation identified. There is mild soft tissue irregularity identified in the medial aspect of the distal lower leg probably ulcer or wound with mild soft tissue edema or infection identified in the lower leg. Impression: 1. No acute osseous findings. 2. Mild soft tissue irregularity identified in the medial aspect of the distal lower leg probably ulcer or wound with mild soft tissue edema or infection identified in the lower leg.
[2016-12-02] MEDS: INSULIN ASPART 300 UNITS/3 ML INSULN.PEN SQ SCH ×3 (08:00→17:00)
[2016-12-02] MEDS ORDERED: FLU VACC QS2017-18 (36MOS+)/PF 0.5 ML SYRINGE. VAX IM ONE (09:00)
[2016-12-02] MEDS ORDERED: INFLUENZA VAX SCREEN BY RX. MC ONE (09:00)
[2016-12-02] MEDS ORDERED: oxyCODONE/APAP 5/325 1 TAB TABLET PO PRN (10:00)
[2016-12-02] MEDS: CLINDAMYCIN 600MG PREMIX 50 ML IV SCH ×2 (10:05→18:01)
[2016-12-02] MEDS: oxyCODONE/APAP 10/325 1 TAB TABLET PO PRN ×2 (10:55→16:38)
--- NOTE | 2016-12-02 12:04 | HP ---
ADMIT DATE: 12/02/2016 CHIEF COMPLAINT: Leg wound. HISTORY OF PRESENT ILLNESS: The patient is a 46-year-old -[place] woman well known to our service with persistent chronic left lower leg wound, who presented to the Emergency Room last night with worsening pain and swelling as well as drainage from her left lower extremity. Apparently, this had gotten significantly worse over the past few days. She had been admitted for same issues in the past and was discharged with recommendations for Wound Care Clinic followup, which she did not heed. She denies any fevers or chills. She did not have any prescriptions of pain medications at home anymore. PAST MEDICAL HISTORY: Chronic leg wound, hypertension, migraines and muscle spasms. FAMILY HISTORY: Positive for diabetes and heart disease in parents as well as brother. SOCIAL HISTORY: Lives with her and children. No toxic habits. ALLERGIES: SUMATRIPTAN. MEDICATIONS: MAR reconciled with home meds. REVIEW OF SYSTEMS: Positive as per HPI. Severe pain in her left lower extremity with denuded skin and granulating tissue. Rest of organ system review, however, is negative. PHYSICAL EXAMINATION: VITAL SIGNS: From today show a blood pressure of 103/48, heart rate of 118, respiratory rate at 18, temperature at 100.0 and pulse ox at 98. Of note, blood pressure earlier had been in the 150s/90s with a heart rate of 76 and current temperature is T-max. GENERAL: This is a thin 46-year-old -[place] woman, awake, alert, crying secondary to pain in the leg. HEENT: Shows no scleral icterus. NECK: Supple. LUNGS: Clear. HEART: Regular rate and rhythm. ABDOMEN: Shows positive bowel sounds. Soft and nontender. EXTREMITIES: Show left lower leg with denuded skin in the lower half of calf circumferentially. There are granulating areas with pus drainage as well as dark appearing dry gangrenous areas laterally and posteriorly. LABORATORY DATA: CBC with a WBC of 13.0, hemoglobin 10.1 and platelets of 445. Chemistries with a BUN and creatinine of 15 and 0.9 and potassium at 2.4. LFTs within normal. IMAGING STUDIES: Ultrasound of the lower extremities shows relatively monophasic waveforms in the artery. Ankle x-ray shows no acute osseous findings. ATTENDING PHYSICIAN: The patient is a 46-year-old -[place] woman with chronic leg wound, who is unfortunately noncompliant with appropriate wound care once again returning with a wound infection. Dr. Salazar has been consulted. Further debridement is more than likely required. Pain control will be achieved with oral medications, Percocet is available for her. Unfortunately, she relates that she has a mandatory court date on Wednesday and is planning on leaving one way or the other from the hospital before then. We will continue all other home medications. ANITRA SILVERMAN MD DR: FEDERICO/nts JOB#: [id number] / [id number] THAIS
[2016-12-02] MEDS: CARVEDILOL 3.125 MG TABLET. PO SCH ×3 (12:30→19:40)
[2016-12-02] MEDS: amLODIPine BESYLATE 5 MG TABLET PO SCH ×2 (13:00→19:39)
[2016-12-02] MEDS: LISINOPRIL 20 MG TABLET PO SCH (13:00)
[2016-12-02] MEDS: hydroCHLOROthiazide 12.5 MG CAPSULE PO SCH (13:00)
[2016-12-02] MEDS: GABAPENTIN 300 MG CAPSULE. PO SCH ×2 (14:00→20:34)
[2016-12-02] MEDS ORDERED: LIDOCAINE 2% PF Vial for OR 5 ML VIAL. ONE (14:11)
[2016-12-02] MEDS ORDERED: DEXAMETHASONE SOD PHOS 20 MG/5 ML VIAL. ONE (14:11)
[2016-12-02] MEDS ORDERED: fentaNYL PF VIAL 100 MCG/2 ML VIAL ONE ×2 (14:11→15:17)
[2016-12-02] MEDS ORDERED: PROPOFOL 20 ML IV ONE (14:11)
[2016-12-02] MEDS ORDERED: ONDANSETRON PF 4 MG/2 ML VIAL. ONE (14:11)
[2016-12-02] MEDS: VANCOMYCIN 1 GM in IV NORMAL SALINE 250ML 250 ML IV SCH (14:40)
--- NOTE | 2016-12-02 15:11 | PDOC2 ---
CARDIAC CONSULT DATE OF CONSULT Date of Consult DATE: 12/02/16 TIME: 15:02 REASON FOR CONSULT Reason for Consult: Sinus tachycardia surgery patient REFERRING PHYSICIAN Referring Physician: Dr. Avilez SOURCE Source: Chart review, Patient HISTORY OF PRESENT ILLNESS HISTORY OF PRESENT ILLNESS This is a 46 yo female, with a chronic left lower extremity wound, who presented with complaints of worsening pain, swelling, and foul smelling drainage from the LLE. Pain has been increasing over the last couple of days. Has not seen wound care recently. Denies any chest pain, palpitations, dizziness , diaphoresis, SOA, or fevers. Patient states that the pain is worsening over the past several days, states she has not followed up with the wound clinic in about a month. She states that the wound has become progressively worse during that time, and is currently weeping and oozing. Patient denies any new injuries, any fevers or chills, any nausea or vomiting. Noted to have a large area of denuded skin with some granulation tissue, noted to be purulent smelling, and with yellow drainage. Located in the medial aspect the left lower extremity. Patient states that this initially occurred after "I wish my legs I cut myself". Patient was previously admitted to the hospital and treated in June for a wound infection. Patient states that she was seen by her surgeon, Dr. Salazar about a month ago. Patient is crying due to pain upon arrival to the emergency department. She states she has not taking any medication for pain prior to coming to the ED. PAST MEDICAL HISTORY Past Medical History chronic LLE wound Cardiovascular: HTN, Hyperlipidemia FAMILY HISTORY Family History: Coronary Artery Disease, Diabetes SOCIAL HISTORY Smoke: No ALCOHOL: none Drugs: None Lives: with Family CURRENT MEDICATIONS CURRENT MEDICATIONS Current Medications Medications (Trade) Dose Ordered Sig/German Route PRN Reason Start Time Stop Time Status Last Admin Dose Admin Fentanyl Citrate (Fentanyl 2ml Vial) 25 mcg PRN Q15MIN PRN IV PAIN GREATER THAN 3/10 12/01/16 22:30 12/02/16 08:57 DC 12/01/16 23:29 Hydromorphone HCl (Dilaudid) 0.5 mg PRN Q15MIN PRN IV/SQ PAIN GREATER THAN 3/10 12/02/16 00:00 12/02/16 08:57 DC 12/02/16 01:41 Ondansetron HCl (Zofran) 4 mg PRN Q8HRS PRN IV NAUSEA/VOMITING 12/02/16 01:45 12/02/16 04:45 DC 12/02/16 02:18 Morphine Sulfate 4 mg PRN Q2HR PRN IV PAIN 12/02/16 01:45 12/02/16 08:57 DC 12/02/16 02:19 Vancomycin HCl (Vanco Per Pharmacy) 1 each PRN DAILY PRN MC SEE COMMENTS 12/02/16 01:30 12/02/16 02:54 Clindamycin Phosphate 50 ml @ 100 mls/hr Q8H IV 12/02/16 10:00 12/02/16 10:05 Clindamycin Phosphate 50 ml @ 100 mls/hr 1X ONCE IV 12/02/16 02:00 12/02/16 02:29 DC 12/02/16 02:05 Potassium Chloride (KCl Oral Soln) 40 meq 1X ONCE PO 12/02/16 02:00 12/02/16 02:01 DC 12/02/16 02:30 Potassium Chloride/Sodium Chloride 1,000 ml @ 75 mls/hr [id number] IV 12/02/16 02:00 12/02/16 02:05 Vancomycin HCl 1.5 gm/Sodium Chloride 500 ml @ 250 mls/hr 1X ONCE IV 12/02/16 03:00 12/02/16 04:59 DC 12/02/16 03:04 Fentanyl Citrate (Fentanyl 2ml Vial) 50 mcg PRN Q2HR PRN IV PAIN 12/02/16 04:00 12/02/16 08:57 DC 12/02/16 04:17 Oxycodone/ Acetaminophen (Percocet 10/325) 1 tab PRN Q4HRS PRN PO pain 8-10 12/02/16 10:00 12/02/16 10:55 ALLERGIES ALLERGIES: Coded Allergies: sumatriptan (Verified Adverse Reaction, Unknown, 09/09/15) ROS Review of System 14 point ROS conducted with pertinent positives noted above in HPI. PHYSICAL EXAM General: Alert, Oriented X3, Cooperative, No acute distress HEENT: Atraumatic, Mucous membr. moist/pink Lungs: Clear to auscultation, Normal air movement Heart: Normal S1, Normal S2, Other (tele ST) Abdomen: Soft, No tenderness Skin: Other (wound to medial aspect of LLE) Neuro: Normal speech, Sensation intact Psych/Mental Status: Mental status NL, Mood NL MUSCULOSKELETAL: No joint tenderness VITALS VITALS Vital Signs Date Time Temp Pulse Resp B/P (MAP) Pulse Ox O2 Delivery O2 Flow Rate FiO2 12/02/16 14:02 98.9 104 18 145/81 99 Room Air 98.9 LABS Lab: Laboratory Tests Test 12/01/16 23:30 12/02/16 11:19 White Blood Count 13.0 x10^3/uL (4.0-11.0) Red Blood Count 3.10 x10^6/uL (3.50-5.40) Hemoglobin 10.1 g/dL (12.0-15.5) Hematocrit 29.9 % (36.0-47.0) Mean Corpuscular Volume 97 fL (79-100) Mean Corpuscular Hemoglobin 33 pg (25-35) Mean Corpuscular Hemoglobin Concent 34 g/dL (31-37) Red Cell Distribution Width 17.7 % (11.5-14.5) Platelet Count 445 x10^3/uL (140-400) Neutrophils (%) (Auto) 75 % (31-73) Lymphocytes (%) (Auto) 17 % (24-48) Monocytes (%) (Auto) 5 % (0-9) Eosinophils (%) (Auto) 3 % (0-3) Basophils (%) (Auto) 1 % (0-3) Neutrophils # (Auto) 9.7 x10^3uL (1.8-7.7) Lymphocytes # (Auto) 2.2 x10^3/uL (1.0-4.8) Monocytes # (Auto) 0.6 x10^3/uL (0.0-1.1) Eosinophils # (Auto) 0.4 x10^3/uL (0.0-0.7) Basophils # (Auto) 0.1 x10^3/uL (0.0-0.2) Sodium Level 136 mmol/L (136-145) Potassium Level 2.4 mmol/L (3.5-5.1) Chloride Level 96 mmol/L (98-107) Carbon Dioxide Level 28 mmol/L (21-32) Anion Gap 12 (6-14) Blood Urea Nitrogen 15 mg/dL (7-20) Creatinine 0.9 mg/dL (0.6-1.0) Estimated GFR (Cockcroft-Gault) 81.6 BUN/Creatinine Ratio 17 (6-20) Glucose Level 93 mg/dL (70-99) Calcium Level 10.9 mg/dL (8.5-10.1) Total Bilirubin 0.4 mg/dL (0.2-1.0) Aspartate Amino Transf (AST/SGOT) 16 U/L (15-37) Alanine Aminotransferase (ALT/SGPT) 17 U/L (14-59) Alkaline Phosphatase 74 U/L (46-116) Total Protein 10.1 g/dL (6.4-8.2) Albumin 3.5 g/dL (3.4-5.0) Albumin/Globulin Ratio 0.5 (1.0-1.7) Glucose (Fingerstick) 122 mg/dL (70-99) ECHOCARDIOGRAM ECHOCARDIOGRAM <Conclusion> The left ventricle is normal size. The left ventricular systolic function is normal and the ejection fraction is within normal range. The Ejection Fraction is 60-65%. There is normal left ventricular wall thickness. There is no significant aortic valvular stenosis. Doppler and Color Flow revealed no significant aortic regurgitation. Doppler and Color Flow revealed no mitral valve regurgitation noted. Doppler and Color Flow revealed trace tricuspid regurgitation. There is no evidence of significant pericardial effusion. DATE: 06/11/161608 ASSESSMENT/PLAN ASSESSMENT/PLAN 1. Sinus tachycardia; likely related to significant pain. Recent echo with normal LV function. Continue supportive care. If HR remains significantly elevated despite adequate hydration and pain management, could consider converting coreg to metoprolol for better rate control. Continue supportive care. 2. Chronic LLE wound with infection with planned debridement; low risk for surgery from a CV standpoint. Continue as per surgery 3. Hypertension: resume home medication therapy. Hydralazine IV PRN. 4. Hypokalemia; replaced. Check Mg- replace as warranted. Problems: JOSE ANGEL SOUZA APRN Dec 02, 2016 15:11
[2016-12-02] MEDS ORDERED: ESMOLOL 100 MG/10 ML VIAL. IV ONE (15:13)
[2016-12-02] MEDS ORDERED: SEVOFLURANE 31 TO 60 MINUTES. IH ONE (15:22)
--- NOTE | 2016-12-02 15:52 | PDOC2 ---
CONSULT Date of Consult Date of Consult DATE: 12/02/16 TIME: 14:59 Reason for Consult Reason for Consult: debridement LLE wound Referring Physician Referring Physician: EDILMA Identification/Chief Complaint Chief Complaint pain Problems: Source Source: Chart review, Patient History of Present Illness Reason for Visit: Cady is a 46 yo lady I know from previous debridements who has a chronic non healing wound on her LLE. I am asked to sharply debride it again. Past Medical History Cardiovascular: HTN Pulmonary: Asthma CENTRAL NERVOUS SYSTEM: Migraine, Periperal neuropathy GI: No pertinent hx Heme/Onc: No pertinent hx Hepatobiliary: No pertinent hx Psych: No pertinent hx Musculoskeletal: Osteoarthritis, Other Rheumatologic: No pertinent hx Infectious disease: No pertinent hx Renal/: No pertinent hx Endocrine: No pertinent hx Past Surgical History Past Surgical History: Other (previous debridement of the LLE wound), No pertinent history Family History Family History: Diabetes Social History ALCOHOL: none Drugs: None Lives: with Family Current Medications Current Medications Current Medications Fentanyl Citrate (Fentanyl 2ml Vial) 25 mcg PRN Q15MIN PRN IV PAIN GREATER THAN 3/10 Last administered on 12/01/16 23:29; Start 12/01/16 at 22:30; Stop at 08:57; Status DC Hydromorphone HCl (Dilaudid) 0.5 mg PRN Q15MIN PRN IV/SQ PAIN GREATER THAN 3/ 10 Last administered on 12/02/16 01:41; Start 12/02/16 at 00:00; Stop 12/02/16 at 08:57; Status DC Ondansetron HCl (Zofran) 4 mg PRN Q8HRS PRN IV NAUSEA/VOMITING Last administered on 12/02/16 02:18; Start 12/02/16 at 01:45; Stop 12/02/16 at 04:45 ; Status DC Morphine Sulfate 4 mg PRN Q2HR PRN IV PAIN Last administered on 12/02/16 02:19 ; Start 12/02/16 at 01:45; Stop 12/02/16 at 08:57; Status DC Acetaminophen (Tylenol) 650 mg PRN Q4HRS PRN PO FEVER; Start 12/02/16 at 01:30 ; Stop 12/03/16 at 01:29 Insulin Aspart (NovoLOG) 0-5 UNITS TIDWMEALS SQ ; Start 12/02/16 at 08:00 Dextrose (Dextrose 50%-Water Syringe) 12.5 gm PRN Q15MIN PRN IV SEE COMMENTS; Start 12/02/16 at 01:30 Vancomycin HCl (Vanco Per Pharmacy) 1 each PRN DAILY PRN MC SEE COMMENTS Last administered on 12/02/16 02:54; Start 12/02/16 at 01:30 Clindamycin Phosphate 50 ml @ 100 mls/hr Q8H IV Last administered on 10:05; Start 12/02/16 at 10:00 Clindamycin Phosphate 50 ml @ 100 mls/hr 1X ONCE IV Last administered on 12/02 02:05; Start 12/02/16 at 02:00; Stop 12/02/16 at 02:29; Status DC Potassium Chloride (KCl Oral Soln) 40 meq 1X ONCE PO Last administered on 12/02 02:30; Start 12/02/16 at 02:00; Stop 12/02/16 at 02:01; Status DC Potassium Chloride/Sodium Chloride 1,000 ml @ 75 mls/hr [id number] IV Last administered on 12/02/16 02:05; Start 12/02/16 at 02:00 Vancomycin HCl 1.5 gm/Sodium Chloride 500 ml @ 250 mls/hr 1X ONCE IV Last administered on 12/02/16 03:04; Start 12/02/16 at 03:00; Stop 12/02/16 at 04:59 ; Status DC Vancomycin HCl 1 gm/Sodium Chloride 250 ml @ 250 mls/hr Q12H IV ; Start at 15:00 Vancomycin HCl 1 each 1X ONCE MC ; Start 12/03/16 at 14:30; Stop 12/03/16 at 14 :31 Info (Do NOT chart on this placeholder) 1 each 1X ONCE MC ; Start 12/02/16 at 09:00; Stop 12/02/16 at 09:01; Status UNV Influenza Virus Vaccine Quadrival (Fluarix Quad [id number] Syringe) 0.5 ml ONCE ONCE VAX IM ; Start 12/02/16 at 09:00; Stop 12/02/16 at 09:01; Status DC Fentanyl Citrate (Fentanyl 2ml Vial) 50 mcg PRN Q2HR PRN IV PAIN Last administered on 9/27/17at 04:17; Start 12/02/16 at 04:00; Stop 12/02/16 at 08:57 ; Status DC Hydromorphone HCl (Dilaudid) 1 mg PRN Q3HRS PRN IV PAIN; Start 12/02/16 at 04: 00; Stop 12/02/16 at 08:57; Status DC Clonidine HCl (Catapres) 0.1 mg PRN Q1HR PRN PO HYPERTENSION, SEE COMMENTS; Start 12/02/16 at 04:00; Stop 12/02/16 at 08:57; Status DC Ondansetron HCl (Zofran) 4 mg PRN Q6HRS PRN IV NAUSEA/VOMITING; Start 12/02/16 at 04:45; Stop 12/03/16 at 04:44 Labetalol HCl (Normodyne) 10 mg PRN Q2HR PRN IVP HYPERTENSION, SEE COMMENTS; Start 12/02/16 at 04:45 Tramadol HCl (Ultram) 50 mg PRN Q6HRS PRN PO HEADACHE; Start 12/02/16 at 05:00 Morphine Sulfate 2 mg PRN Q2HR PRN IV PAIN; Start 12/02/16 at 09:00 Oxycodone/ Acetaminophen (Percocet 5/325) 1 tab PRN Q4HRS PRN PO pain 5-7; Start 12/02/16 at 10:00 Oxycodone/ Acetaminophen (Percocet 10/325) 1 tab PRN Q4HRS PRN PO pain 8-10 Last administered on 12/02/16t 10:55; Start 12/02/16 at 10:00 Acetaminophen/ Codeine Phosphate (Tylenol #3) 1 tab PRN Q6HRS PRN PO PAIN; Start 12/02/16 at 11:45 Amlodipine Besylate (Norvasc) 5 mg DAILY PO ; Start 12/02/16 at 13:00 Carvedilol (Coreg) 3.125 mg BIDWMEALS PO ; Start 12/02/16 at 12:30 Non-Formulary Medication 1 tab DAILY PO ; Start 12/03/16 at 09:00; Status UNV Gabapentin (Neurontin) 300 mg TID PO ; Start 12/02/16 at 14:00 Lisinopril (Prinivil) 20 mg DAILY PO ; Start 12/02/16 at 13:00 Hydrochlorothiazide (Microzide) 12.5 mg DAILY PO ; Start 12/02/16 at 13:00 Propofol 20 ml @ As Directed STK-MED ONCE IV ; Start 12/02/16 at 14:11; Stop at 14:12; Status DC Dexamethasone Sodium Phosphate (Decadron) 20 mg STK-MED ONCE .ROUTE ; Start at 14:11; Stop 12/02/16 at 14:12; Status DC Lidocaine HCl (Lidocaine Pf 2% Vial) 5 ml STK-MED ONCE .ROUTE ; Start 12/02/16 at 14:11; Stop 12/02/16 at 14:12; Status DC Ondansetron HCl (Zofran) 4 mg STK-MED ONCE .ROUTE ; Start 12/02/16 at 14:11; Stop 12/02/16 at 14:12; Status DC Fentanyl Citrate (Fentanyl 2ml Vial) 100 mcg STK-MED ONCE .ROUTE ; Start at 14:11; Stop 12/02/16 at 14:12; Status DC Active Scripts Active Oxycodone Hcl 5 Mg Tablet 5 Mg PO DAILY PRN before dressing changes Propranolol Hcl 80 Mg Cap.sa.24h 1 Cap PO DAILY Tramadol Hcl 50 Mg Tablet 1 Tab PO PRN Q6HRS PRN Naproxen 500 Mg Tablet 1 Tab PO BID Fate 5-325 Tablet (Acetaminophen/Hydrocodone Bitart) 1 Each Tablet 1 Tab PO PRN Q6HRS PRN Tylenol With Codeine #3 Tablet (Acetaminophen/Codeine Phosphate) 1 Each Tablet 1 Tab PO PRN Q6HRS PRN Reported Carvedilol 3.125 Mg Tablet 1 Tab PO BID Benazepril-Hctz 20-12.5 Mg Tab (Benazepril/Hydrochlorothiazide) 1 Each Tablet 1 Tab PO DAILY Amlodipine Besylate 5 Mg Tablet 5 Mg PO DAILY Gabapentin 300 Mg Capsule 300 Mg PO TID Allergies Allergies: Coded Allergies: sumatriptan (Verified Adverse Reaction, Unknown, 09/09/15) ROS Review of System negative with exception of present complaints Physical Exam General: No acute distress HEENT: Atraumatic Lungs: Clear to auscultation Heart: Other (increased rate) Extremities: Other (open wound, LLE) Neuro: Normal speech Vitals VITALS Vital Signs Date Time Temp Pulse Resp B/P (MAP) Pulse Ox O2 Delivery O2 Flow Rate FiO2 12/02/16 14:02 98.9 104 18 145/81 99 Room Air 98.9 Labs Labs Laboratory Tests Test 12/01/16 23:30 12/02/16 11:19 White Blood Count 13.0 x10^3/uL (4.0-11.0) Red Blood Count 3.10 x10^6/uL (3.50-5.40) Hemoglobin 10.1 g/dL (12.0-15.5) Hematocrit 29.9 % (36.0-47.0) Mean Corpuscular Volume 97 fL (79-100) Mean Corpuscular Hemoglobin 33 pg (25-35) Mean Corpuscular Hemoglobin Concent 34 g/dL (31-37) Red Cell Distribution Width 17.7 % (11.5-14.5) Platelet Count 445 x10^3/uL (140-400) Neutrophils (%) (Auto) 75 % (31-73) Lymphocytes (%) (Auto) 17 % (24-48) Monocytes (%) (Auto) 5 % (0-9) Eosinophils (%) (Auto) 3 % (0-3) Basophils (%) (Auto) 1 % (0-3) Neutrophils # (Auto) 9.7 x10^3uL (1.8-7.7) Lymphocytes # (Auto) 2.2 x10^3/uL (1.0-4.8) Monocytes # (Auto) 0.6 x10^3/uL (0.0-1.1) Eosinophils # (Auto) 0.4 x10^3/uL (0.0-0.7) Basophils # (Auto) 0.1 x10^3/uL (0.0-0.2) Sodium Level 136 mmol/L (136-145) Potassium Level 2.4 mmol/L (3.5-5.1) Chloride Level 96 mmol/L (98-107) Carbon Dioxide Level 28 mmol/L (21-32) Anion Gap 12 (6-14) Blood Urea Nitrogen 15 mg/dL (7-20) Creatinine 0.9 mg/dL (0.6-1.0) Estimated GFR (Cockcroft-Gault) 81.6 BUN/Creatinine Ratio 17 (6-20) Glucose Level 93 mg/dL (70-99) Calcium Level 10.9 mg/dL (8.5-10.1) Total Bilirubin 0.4 mg/dL (0.2-1.0) Aspartate Amino Transf (AST/SGOT) 16 U/L (15-37) Alanine Aminotransferase (ALT/SGPT) 17 U/L (14-59) Alkaline Phosphatase 74 U/L (46-116) Total Protein 10.1 g/dL (6.4-8.2) Albumin 3.5 g/dL (3.4-5.0) Albumin/Globulin Ratio 0.5 (1.0-1.7) Glucose (Fingerstick) 122 mg/dL (70-99) Laboratory Tests Test 12/01/16 23:30 12/02/16 11:19 White Blood Count 13.0 x10^3/uL (4.0-11.0) Red Blood Count 3.10 x10^6/uL (3.50-5.40) Hemoglobin 10.1 g/dL (12.0-15.5) Hematocrit 29.9 % (36.0-47.0) Mean Corpuscular Volume 97 fL (79-100) Mean Corpuscular Hemoglobin 33 pg (25-35) Mean Corpuscular Hemoglobin Concent 34 g/dL (31-37) Red Cell Distribution Width 17.7 % (11.5-14.5) Platelet Count 445 x10^3/uL (140-400) Neutrophils (%) (Auto) 75 % (31-73) Lymphocytes (%) (Auto) 17 % (24-48) Monocytes (%) (Auto) 5 % (0-9) Eosinophils (%) (Auto) 3 % (0-3) Basophils (%) (Auto) 1 % (0-3) Neutrophils # (Auto) 9.7 x10^3uL (1.8-7.7) Lymphocytes # (Auto) 2.2 x10^3/uL (1.0-4.8) Monocytes # (Auto) 0.6 x10^3/uL (0.0-1.1) Eosinophils # (Auto) 0.4 x10^3/uL (0.0-0.7) Basophils # (Auto) 0.1 x10^3/uL (0.0-0.2) Sodium Level 136 mmol/L (136-145) Potassium Level 2.4 mmol/L (3.5-5.1) Chloride Level 96 mmol/L (98-107) Carbon Dioxide Level 28 mmol/L (21-32) Anion Gap 12 (6-14) Blood Urea Nitrogen 15 mg/dL (7-20) Creatinine 0.9 mg/dL (0.6-1.0) Estimated GFR (Cockcroft-Gault) 81.6 BUN/Creatinine Ratio 17 (6-20) Glucose Level 93 mg/dL (70-99) Calcium Level 10.9 mg/dL (8.5-10.1) Total Bilirubin 0.4 mg/dL (0.2-1.0) Aspartate Amino Transf (AST/SGOT) 16 U/L (15-37) Alanine Aminotransferase (ALT/SGPT) 17 U/L (14-59) Alkaline Phosphatase 74 U/L (46-116) Total Protein 10.1 g/dL (6.4-8.2) Albumin 3.5 g/dL (3.4-5.0) Albumin/Globulin Ratio 0.5 (1.0-1.7) Glucose (Fingerstick) 122 mg/dL (70-99) Assessment/Plan Assessment/Plan chronic non healing wound, LLE debridement Thanks for consult DASIA MATOS MD Dec 02, 2016 15:52
[2016-12-02] MEDS ORDERED: PROCHLORPERAZINE 10 MG/2 ML VIAL. IV PRN (16:00)
[2016-12-02] MEDS ORDERED: LIDOCAINE 1% PF 2 ML VIAL. ID PRN (16:00)
[2016-12-02] MEDS ORDERED: MORPHINE SULFATE 2 MG/ML DISP.SYRIN. IV PRN (16:00)
[2016-12-02] MEDS ORDERED: HYDROmorphone 2 MG/ML VIAL ONE (16:00)
[2016-12-02] MEDS ORDERED: IV RINGERS,LACTATED 1000ML 1,000 ML IV SCH (16:00)
--- NOTE | 2016-12-02 16:03 | PDOC ---
BRIEF OPERATIVE NOTE Date: Dec 02, 2016 Pre-Op Diagnosis chronic non healing wound LLE Post-Op Diagnosis same Procedure Performed sharp debridement of skin and subcutaneous tissue Surgeon Martin Electronic Security Technician Marlin Castillo Anesthesia Type: General Blood Loss 25cc IV Fluid 400cc Specimens Obtained none Findings necrotic tissue, purulent exudate Complications none OPerative Note # [id number] DASIA MATOS MD Dec 02, 2016 16:03
[2016-12-02] MEDS: HYDROmorphone 2 MG/ML VIAL IV PRN ×4 (16:19→17:00)
--- NOTE | 2016-12-02 19:45 | OP ---
DATE OF SURGERY: 12/02/2016 PREOPERATIVE DIAGNOSIS: Chronic nonhealing wound, left lower extremity. POSTOPERATIVE DIAGNOSIS: Chronic nonhealing wound, left lower extremity. PROCEDURE: Sharp debridement of skin and subcutaneous tissue, placement of the wound VAC. SURGEON: Juan Matos MD. WHITE [employer]UP OPERATOR: ____ ANESTHESIA: General LMA. ESTIMATED BLOOD LOSS: 25. IV FLUID: 400. INDICATIONS: The patient is a 46-year-old with chronic nonhealing wound of her left lower extremity, brought for sharp debridement operative repair. DESCRIPTION OF PROCEDURE: The patient was brought to the operating suite, given a general LMA and the left lower extremity was prepped and draped in usual sterile fashion. Using sharp dissection and the pulse muck farmer, necrotic skin and subcutaneous tissue was debrided from the wound down to viable bleeding tissue. When hemostasis was present, a wound VAC was placed. The patient was awakened from anesthetic and taken to the recovery room in satisfactory condition. JUAN MATOS MD DR: JEROD/siddharth JOB#: [id number] / [id number] EPHRAIM Denise MD
[2016-12-02] MEDS: traMADol 50 MG TABLET PO PRN (19:49)
[2016-12-02 20:53] LABS: NEG OBC UR NEG; POS OBC UR POS
[2016-12-02] MEDS ORDERED: METOPROLOL TART IMMED RELEASE 25 MG TABLET. PO SCH (22:00)
[2016-12-02] MEDS: ACETAMINOPHEN/CODEINE 300/30MG TABLET. PO PRN (23:37)
[2016-12-03] MEDS: oxyCODONE/APAP 10/325 1 TAB TABLET PO PRN ×3 (00:15→14:58)
[2016-12-03] MEDS: VANCOMYCIN 1 GM in IV NORMAL SALINE 250ML 250 ML IV SCH (02:35)
[2016-12-03] MEDS: CLINDAMYCIN 600MG PREMIX 50 ML IV SCH ×2 (02:35→09:40)
[2016-12-03 03:30] VITALS: BP 129/82
[2016-12-03] MEDS: traMADol 50 MG TABLET PO PRN ×3 (03:55→15:40)
[2016-12-03 04:43] LABS: BASO % 0 % (0-3); EOS % 0 % (0-3); HEMATOCRIT 25.4 % (36.0-47.0); HEMOGLOBIN 8.4 g/dL (12.0-15.5); LYMPH # 1.1 x10^3/uL (1.0-4.8); LYMPH % 10 % (24-48); MEAN CORPUSCULAR HEMOGLOBIN 32 pg (25-35); MEAN CORPUSCULAR HGB CONC 33 g/dL (31-37); MEAN CORPUSCULAR VOLUME 98 fL (79-100); MONO % 3 % (0-9); NEUT % 87 % (31-73); PLATELET COUNT 342 x10^3/uL (140-400); RED BLOOD COUNT 2.58 x10^6/uL (3.50-5.40); RED CELL DISTRIBUTION WIDTH 17.7 % (11.5-14.5); WHITE BLOOD COUNT 11.6 x10^3/uL (4.0-11.0)
[2016-12-03 04:57] LABS: CALCIUM 9.3 mg/dL (8.5-10.1); CREATININE 0.8 mg/dL (0.6-1.0); GFR 93.4; POTASSIUM 3.5 mmol/L (3.5-5.1)
[2016-12-03 06:12] LABS: ANISOCYTOSIS SLIGHT; PLT ESTIMATE ADEQUATE (ADEQUATE)
[2016-12-03 07:00] VITALS: BP 150/93
[2016-12-03] MEDS: INSULIN ASPART 300 UNITS/3 ML INSULN.PEN SQ SCH ×2 (08:00→11:17)
[2016-12-03] MEDS: hydroCHLOROthiazide 12.5 MG CAPSULE PO SCH (08:41)
[2016-12-03] MEDS: LISINOPRIL 20 MG TABLET PO SCH (08:42)
[2016-12-03] MEDS: GABAPENTIN 300 MG CAPSULE. PO SCH ×2 (08:45→14:58)
[2016-12-03] MEDS: amLODIPine BESYLATE 5 MG TABLET PO SCH (08:45)
[2016-12-03] MEDS ORDERED: NON FORMULARY ITEM (Benazepril/Hydrochlorothiazide (Benazepril-Hctz 20-12.5 Mg Tab) 1 TAB) PO SCH (09:00)
[2016-12-03] MEDS ORDERED: METOPROLOL TART IMMED RELEASE 25 MG TABLET. PO SCH (09:00)
[2016-12-03] MEDS: POTASSIUM CL 40MEQ IN 0.9%NACL 1,000 ML IV SCH (09:38)
[2016-12-03 11:00] VITALS: BP 132/85
--- NOTE | 2016-12-03 13:12 | PDOC ---
[employer] ARCHITECT 12/03/16 1312: SURGICAL PROGRESS NOTE Subjective tolerating diet some pain Vital Signs Vital Signs Date Time Temp Pulse Resp B/P (MAP) Pulse Ox O2 Delivery O2 Flow Rate FiO2 12/03/16 11:00 98.1 95 18 132/85 (101) 98 Room Air 98.1 12/02/16 16:00 8 I&O Intake and Output 12/04/16 07:00 Intake Total 120 ml Balance 120 ml Intake Oral 120 ml General: Alert, Oriented X3, Cooperative, No acute distress Extremities: Other (left leg with wound vac in place) Labs Laboratory Tests Test 12/01/16 23:30 12/02/16 07:57 12/02/16 11:19 12/02/16 14:45 White Blood Count 13.0 x10^3/uL (4.0-11.0) Red Blood Count 3.10 x10^6/uL (3.50-5.40) Hemoglobin 10.1 g/dL (12.0-15.5) Hematocrit 29.9 % (36.0-47.0) Mean Corpuscular Volume 97 fL (79-100) Mean Corpuscular Hemoglobin 33 pg (25-35) Mean Corpuscular Hemoglobin Concent 34 g/dL (31-37) Red Cell Distribution Width 17.7 % (11.5-14.5) Platelet Count 445 x10^3/uL (140-400) Neutrophils (%) (Auto) 75 % (31-73) Lymphocytes (%) (Auto) 17 % (24-48) Monocytes (%) (Auto) 5 % (0-9) Eosinophils (%) (Auto) 3 % (0-3) Basophils (%) (Auto) 1 % (0-3) Neutrophils # (Auto) 9.7 x10^3uL (1.8-7.7) Lymphocytes # (Auto) 2.2 x10^3/uL (1.0-4.8) Monocytes # (Auto) 0.6 x10^3/uL (0.0-1.1) Eosinophils # (Auto) 0.4 x10^3/uL (0.0-0.7) Basophils # (Auto) 0.1 x10^3/uL (0.0-0.2) Sodium Level 136 mmol/L (136-145) Potassium Level 2.4 mmol/L (3.5-5.1) Chloride Level 96 mmol/L (98-107) Carbon Dioxide Level 28 mmol/L (21-32) Anion Gap 12 (6-14) Blood Urea Nitrogen 15 mg/dL (7-20) Creatinine 0.9 mg/dL (0.6-1.0) Estimated GFR (Cockcroft-Gault) 81.6 BUN/Creatinine Ratio 17 (6-20) Glucose Level 93 mg/dL (70-99) Calcium Level 10.9 mg/dL (8.5-10.1) Total Bilirubin 0.4 mg/dL (0.2-1.0) Aspartate Amino Transf (AST/SGOT) 16 U/L (15-37) Alanine Aminotransferase (ALT/SGPT) 17 U/L (14-59) Alkaline Phosphatase 74 U/L (46-116) Total Protein 10.1 g/dL (6.4-8.2) Albumin 3.5 g/dL (3.4-5.0) Albumin/Globulin Ratio 0.5 (1.0-1.7) Glucose (Fingerstick) 93 mg/dL (70-99) 122 mg/dL (70-99) Urine Test Negative (NEG) Test 12/02/16 17:35 12/02/16 17:53 12/02/16 21:01 12/03/16 03:55 Magnesium Level 1.6 mg/dL (1.8-2.4) Glucose (Fingerstick) 120 mg/dL (70-99) 194 mg/dL (70-99) White Blood Count 11.6 x10^3/uL (4.0-11.0) Red Blood Count 2.58 x10^6/uL (3.50-5.40) Hemoglobin 8.4 g/dL (12.0-15.5) Hematocrit 25.4 % (36.0-47.0) Mean Corpuscular Volume 98 fL (79-100) Mean Corpuscular Hemoglobin 32 pg (25-35) Mean Corpuscular Hemoglobin Concent 33 g/dL (31-37) Red Cell Distribution Width 17.7 % (11.5-14.5) Platelet Count 342 x10^3/uL (140-400) Neutrophils (%) (Auto) 87 % (31-73) Lymphocytes (%) (Auto) 10 % (24-48) Monocytes (%) (Auto) 3 % (0-9) Eosinophils (%) (Auto) 0 % (0-3) Basophils (%) (Auto) 0 % (0-3) Neutrophils # (Auto) 10.0 x10^3uL (1.8-7.7) Lymphocytes # (Auto) 1.1 x10^3/uL (1.0-4.8) Monocytes # (Auto) 0.4 x10^3/uL (0.0-1.1) Eosinophils # (Auto) 0.0 x10^3/uL (0.0-0.7) Basophils # (Auto) 0.0 x10^3/uL (0.0-0.2) Segmented Neutrophils % 86 % (35-66) Lymphocytes % 12 % (24-48) Monocytes % 2 % (0-10) Platelet Estimate Adequate (ADEQUATE) Anisocytosis Slight Sodium Level 141 mmol/L (136-145) Potassium Level 3.5 mmol/L (3.5-5.1) Chloride Level 107 mmol/L (98-107) Carbon Dioxide Level 24 mmol/L (21-32) Anion Gap 10 (6-14) Blood Urea Nitrogen 7 mg/dL (7-20) Creatinine 0.8 mg/dL (0.6-1.0) Estimated GFR (Cockcroft-Gault) 93.4 Glucose Level 125 mg/dL (70-99) Calcium Level 9.3 mg/dL (8.5-10.1) Test 12/03/16 08:37 12/03/16 11:04 Glucose (Fingerstick) 107 mg/dL (70-99) 103 mg/dL (70-99) Laboratory Tests Test 12/02/16 14:45 12/02/16 17:35 12/02/16 17:53 12/02/16 21:01 Urine Test Negative (NEG) Magnesium Level 1.6 mg/dL (1.8-2.4) Glucose (Fingerstick) 120 mg/dL (70-99) 194 mg/dL (70-99) Test 12/03/16 03:55 12/03/16 08:37 12/03/16 11:04 White Blood Count 11.6 x10^3/uL (4.0-11.0) Red Blood Count 2.58 x10^6/uL (3.50-5.40) Hemoglobin 8.4 g/dL (12.0-15.5) Hematocrit 25.4 % (36.0-47.0) Mean Corpuscular Volume 98 fL (79-100) Mean Corpuscular Hemoglobin 32 pg (25-35) Mean Corpuscular Hemoglobin Concent 33 g/dL (31-37) Red Cell Distribution Width 17.7 % (11.5-14.5) Platelet Count 342 x10^3/uL (140-400) Neutrophils (%) (Auto) 87 % (31-73) Lymphocytes (%) (Auto) 10 % (24-48) Monocytes (%) (Auto) 3 % (0-9) Eosinophils (%) (Auto) 0 % (0-3) Basophils (%) (Auto) 0 % (0-3) Neutrophils # (Auto) 10.0 x10^3uL (1.8-7.7) Lymphocytes # (Auto) 1.1 x10^3/uL (1.0-4.8) Monocytes # (Auto) 0.4 x10^3/uL (0.0-1.1) Eosinophils # (Auto) 0.0 x10^3/uL (0.0-0.7) Basophils # (Auto) 0.0 x10^3/uL (0.0-0.2) Segmented Neutrophils % 86 % (35-66) Lymphocytes % 12 % (24-48) Monocytes % 2 % (0-10) Platelet Estimate Adequate (ADEQUATE) Anisocytosis Slight Sodium Level 141 mmol/L (136-145) Potassium Level 3.5 mmol/L (3.5-5.1) Chloride Level 107 mmol/L (98-107) Carbon Dioxide Level 24 mmol/L (21-32) Anion Gap 10 (6-14) Blood Urea Nitrogen 7 mg/dL (7-20) Creatinine 0.8 mg/dL (0.6-1.0) Estimated GFR (Cockcroft-Gault) 93.4 Glucose Level 125 mg/dL (70-99) Calcium Level 9.3 mg/dL (8.5-10.1) Glucose (Fingerstick) 107 mg/dL (70-99) 103 mg/dL (70-99) Assessment/Plan s/p debridement continue wound care Problems: DASIA MATOS MD 12/03/16 1613: SURGICAL PROGRESS NOTE Assessment/Plan as above no new surgical recs Problems: GALLITO ESTRADA APRN Dec 03, 2016 13:12 DASIA MATOS MD Dec 03, 2016 16:13
--- NOTE | 2016-12-03 14:42 | PDOC ---
CARDIO Progress Notes Date and Time Date of Service 12/03/16 Time of Evaluation 1141 Subjective Subjective: No Chest Pain, No shortness of breath, Other (mild LLE pain) Vitals Vitals Vital Signs Date Time Temp Pulse Resp B/P (MAP) Pulse Ox O2 Delivery O2 Flow Rate FiO2 12/03/16 11:00 98.1 95 18 132/85 (101) 98 Room Air 98.1 12/02/16 16:00 8 Weight Weight [ ] Input and Output Intake and Output Intake and Output 12/04/16 07:00 Intake Total 360 ml Balance 360 ml Intake Oral 360 ml Laboratory Labs Laboratory Tests Test 12/02/16 14:45 12/02/16 17:35 12/02/16 17:53 12/02/16 21:01 Urine Test Negative (NEG) Magnesium Level 1.6 mg/dL (1.8-2.4) Glucose (Fingerstick) 120 mg/dL (70-99) 194 mg/dL (70-99) Test 12/03/16 03:55 12/03/16 08:37 12/03/16 11:04 White Blood Count 11.6 x10^3/uL (4.0-11.0) Red Blood Count 2.58 x10^6/uL (3.50-5.40) Hemoglobin 8.4 g/dL (12.0-15.5) Hematocrit 25.4 % (36.0-47.0) Mean Corpuscular Volume 98 fL (79-100) Mean Corpuscular Hemoglobin 32 pg (25-35) Mean Corpuscular Hemoglobin Concent 33 g/dL (31-37) Red Cell Distribution Width 17.7 % (11.5-14.5) Platelet Count 342 x10^3/uL (140-400) Neutrophils (%) (Auto) 87 % (31-73) Lymphocytes (%) (Auto) 10 % (24-48) Monocytes (%) (Auto) 3 % (0-9) Eosinophils (%) (Auto) 0 % (0-3) Basophils (%) (Auto) 0 % (0-3) Neutrophils # (Auto) 10.0 x10^3uL (1.8-7.7) Lymphocytes # (Auto) 1.1 x10^3/uL (1.0-4.8) Monocytes # (Auto) 0.4 x10^3/uL (0.0-1.1) Eosinophils # (Auto) 0.0 x10^3/uL (0.0-0.7) Basophils # (Auto) 0.0 x10^3/uL (0.0-0.2) Segmented Neutrophils % 86 % (35-66) Lymphocytes % 12 % (24-48) Monocytes % 2 % (0-10) Platelet Estimate Adequate (ADEQUATE) Anisocytosis Slight Sodium Level 141 mmol/L (136-145) Potassium Level 3.5 mmol/L (3.5-5.1) Chloride Level 107 mmol/L (98-107) Carbon Dioxide Level 24 mmol/L (21-32) Anion Gap 10 (6-14) Blood Urea Nitrogen 7 mg/dL (7-20) Creatinine 0.8 mg/dL (0.6-1.0) Estimated GFR (Cockcroft-Gault) 93.4 Glucose Level 125 mg/dL (70-99) Calcium Level 9.3 mg/dL (8.5-10.1) Glucose (Fingerstick) 107 mg/dL (70-99) 103 mg/dL (70-99) Microbiology Micro Microbiology 12/02/16 Gram Stain - Final, Complete Physical Exam HEENT: Neck Supple W Full Motion Chest: Symmetric LUNGS: Clear to Auscultation Heart: S1S2, RRR Abdomen: Soft N/T Extremities: No Edema, Other (LLE wound vac) Neurology: alert, oriented, follow commands Assessment Assessment 1. Sinus tachycardia; secondary to significant pain. Recent echo with normal LV function. HR better controlled with converting Coreg to metoprolol. Continue supportive care. No further cardiac workup warranted at this time. Please call with questions. 2. Chronic LLE wound with infection; s/p debridement; continue wound care measures. 3. Hypertension: controlled. Continue current therapy. 4. Hypokalemia; resolved. 5. Hypomagnesemia; replace. Monitor JOSE ANGEL Erickson APRN Dec 03, 2016 14:42
[2016-12-03 15:00] VITALS: BP 150/90
[2016-12-03] MEDS ORDERED: MAGNESIUM SULFATE 2GM 50 ML IV ONE (15:00)
[2016-12-03] MEDS: VANCOMYCIN PER PHARMACY MC PRN (15:49)
[2016-12-03] MEDS ORDERED: HYDR-971 PO (15:54)
[2016-12-03] MEDS ORDERED: LEVO500T59 PO (15:56)
[2016-12-03] MEDS: ACETAMINOPHEN/CODEINE 300/30MG TABLET. PO PRN (16:35)
--- NOTE | 2016-12-04 03:35 | DS ---
DATE OF DISCHARGE: 12/03/2016 CHIEF COMPLAINT: Worsening leg wounds. HISTORY OF PRESENT ILLNESS: The patient is a 46-year-old -[place] woman, well known to our service with persistent and slowly worsening chronic left lower leg wound, who presented to the Emergency Room once again with worsening pain and swelling as well as drainage from her left lower extremity. She was taken to the OR for sharp debridement by Dr. Salazar. Wound VAC was applied. This, however, was taken off prior to discharge. The patient insisted on being discharged the following day as she had a court date on the that she could not miss. Despite recommendations of hospitalization for a couple of more days for antibiotic treatment, the patient left the hospital on the . She was strongly advised to follow up in Wound Clinic as arranged. Prior to discharge, a wound culture actually returned positive for Proteus and the patient was started on Levaquin for 14 days. PHYSICAL EXAMINATION: VITAL SIGNS: Show a blood pressure of 150/90, heart rate at 106, respiratory rate at 18. She is afebrile. GENERAL: This is a 46-year-old slim -[place] woman, awake, alert, in no acute distress. LUNGS: Clear. HEART: Regular rate and rhythm. ABDOMEN: Has positive bowel sounds, soft, nontender. EXTREMITIES: Show circumferential right lower distal extremity wound. DISCHARGE DIAGNOSES: Chronic venous stasis ulcer, cellulitis, status post sharp debridement on 12/02. DISCHARGE DISPOSITION: To home. DISCHARGE CONDITION: Improved. DISCHARGE MEDICATIONS: Please refer to MAR. DISCHARGE INSTRUCTIONS: The patient will follow up with wound clinic as arranged. ANITRA SILVERMAN MD DR: FEDERICO/nts JOB#: [id number] / [id number] THAIS
== END 2016-12-03 18:26 | disposition home or self-care (01) | DRG 854 ==
LOC: ER 21:53 → 4 NORTH 12-02 00:03
PROVIDERS: ADMIT Internal Medicine; ATTEND Internal Medicine
PROC: 0JBP0ZZ Excision of Left Lower Leg Subcutaneous Tissue and Fascia, Open Approach (ICD-10-PCS; principal; 2016-12-02 15:00)
DX: A41.9 Sepsis, unspecified organism (principal); L03.116 Cellulitis of left lower limb; L97.929 Non-pressure chronic ulcer of unspecified part of left lower leg with unspecified severity; I10 Essential (primary) hypertension; E83.42 Hypomagnesemia; I87.2 Venous insufficiency (chronic) (peripheral); G62.9 Polyneuropathy, unspecified; S81.802A Unspecified open wound, left lower leg, initial encounter; E78.5 Hyperlipidemia, unspecified; E87.6 Hypokalemia; J45.909 Unspecified asthma, uncomplicated; R00.0 Tachycardia, unspecified; G43.909 Migraine, unspecified, not intractable, without status migrainosus; M19.90 Unspecified osteoarthritis, unspecified site; M62.838 Other muscle spasm; Y99.8 Other external cause status; Y92.89 Other specified places as the place of occurrence of the external cause; X58.XXXA Exposure to other specified factors, initial encounter; Z82.49 Family history of ischemic heart disease and other diseases of the circulatory system; Z83.3 Family history of diabetes mellitus; Z88.8 Allergy status to other drugs, medicaments and biological substances; Y93.89 Activity, other specified
CPT/HCPCS: 36415; 73610; 80048; 80053; 80202; 81025; 82962; 83735; 85007; 85025; 87071; 87075; 87186; 87205; 90686; 93005; 93923; 96374; 99285; J1100; J1170; J1815; J2270; J2405; J2704; J3010; J3370; J3480; J3490; J7030; J7040; J7050; J7060; J7120; J2001

== ENCOUNTER → 2016-12-09 | Outpatient (CLI) | payer OTHER ==
[2016-12-03 15:00] VITALS: BP 150/90
[~2016-12-09] MED LIST changes: +LEVO500T59 PO
== END | disposition home or self-care (01) ==
LOC: PMGWOUND 09:39
PROVIDERS: ATTEND Preventive Medicine Undersea and Hyperbaric Medicine
DX: I87.312 Chronic venous hypertension (idiopathic) with ulcer of left lower extremity (principal); L97.821 Non-pressure chronic ulcer of other part of left lower leg limited to breakdown of skin; E78.5 Hyperlipidemia, unspecified; J45.909 Unspecified asthma, uncomplicated; M19.90 Unspecified osteoarthritis, unspecified site
CPT/HCPCS: 29581; 97597; 97598

== ENCOUNTER → 2016-12-16 | Outpatient (CLI) | payer OTHER ==
[2016-12-03 15:00] VITALS: BP 150/90
== END | disposition home or self-care (01) ==
LOC: PMGWOUND 11:28
PROVIDERS: ATTEND Preventive Medicine Undersea and Hyperbaric Medicine
DX: I87.312 Chronic venous hypertension (idiopathic) with ulcer of left lower extremity (principal); L97.321 Non-pressure chronic ulcer of left ankle limited to breakdown of skin; E78.5 Hyperlipidemia, unspecified; J45.909 Unspecified asthma, uncomplicated; M19.90 Unspecified osteoarthritis, unspecified site
CPT/HCPCS: 29581; 97597

== ENCOUNTER → 2016-12-23 | Outpatient (CLI) | payer OTHER ==
[2016-12-03 15:00] VITALS: BP 150/90
== END | disposition home or self-care (01) ==
LOC: PMGWOUND 11:35
PROVIDERS: ATTEND Emergency Medicine Undersea and Hyperbaric Medicine
DX: I87.312 Chronic venous hypertension (idiopathic) with ulcer of left lower extremity (principal); L97.325 Non-pressure chronic ulcer of left ankle with muscle involvement without evidence of necrosis; E78.5 Hyperlipidemia, unspecified; J45.909 Unspecified asthma, uncomplicated; M19.90 Unspecified osteoarthritis, unspecified site; G62.9 Polyneuropathy, unspecified; I73.9 Peripheral vascular disease, unspecified; G89.4 Chronic pain syndrome; F15.90 Other stimulant use, unspecified, uncomplicated
CPT/HCPCS: 29581; 97597; 97598

== ENCOUNTER → 2017-01-06 | Outpatient (CLI) | payer OTHER | END | disposition home or self-care (01) | LOC: PMGWOUND 11:04 | PROVIDERS: ATTEND Preventive Medicine Undersea and Hyperbaric Medicine | DX: I87.312 Chronic venous hypertension (idiopathic) with ulcer of left lower extremity (principal); L97.325 Non-pressure chronic ulcer of left ankle with muscle involvement without evidence of necrosis; E78.5 Hyperlipidemia, unspecified; F15.90 Other stimulant use, unspecified, uncomplicated; I73.9 Peripheral vascular disease, unspecified; J45.909 Unspecified asthma, uncomplicated; M19.90 Unspecified osteoarthritis, unspecified site; G89.4 Chronic pain syndrome; G62.9 Polyneuropathy, unspecified | CPT/HCPCS: 97597 ==

== ENCOUNTER 2017-01-17 14:11 | Emergency (ER) | payer OTHER ==
[~2017-01-17] VITALS: Ht 170.2 cm; Wt 68.0 kg
--- NOTE | 2017-01-17 14:37 | EKG ---
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
--- NOTE | 2017-01-17 14:55 | RAD ---
EXAM: Chest, single view. HISTORY: Chest pain. COMPARISON: 06/11/2016. FINDINGS: A frontal view of the chest obtained. There is left basilar atelectasis or infiltrate. There is no consolidation, effusion or pneumothorax. The heart is normal in size. IMPRESSION: Left basilar atelectasis or infiltrate.
[2017-01-17 15:01] LABS: BASO # 0.1 x10^3/uL (0.0-0.2); BASO % 1 % (0-3); EOS % 10 % (0-3); HEMATOCRIT 30.4 % (36.0-47.0); HEMOGLOBIN 10.3 g/dL (12.0-15.5); LYMPH # 1.7 x10^3/uL (1.0-4.8); LYMPH % 16 % (24-48); MEAN CORPUSCULAR HEMOGLOBIN 33 pg (25-35); MEAN CORPUSCULAR HGB CONC 34 g/dL (31-37); MEAN CORPUSCULAR VOLUME 99 fL (79-100); MONO % 8 % (0-9); NEUT % 66 % (31-73); PLATELET COUNT 300 x10^3/uL (140-400); RED BLOOD COUNT 3.08 x10^6/uL (3.50-5.40); RED CELL DISTRIBUTION WIDTH 15.5 % (11.5-14.5); WHITE BLOOD COUNT 10.7 x10^3/uL (4.0-11.0)
[2017-01-17 15:10] LABS: INR 1.2 (0.8-1.1); PROTHROMBIN TIME PATIENT 14.1 SEC (11.7-14.0)
[2017-01-17 15:15] LABS: ALBUMIN 3.5 g/dL (3.4-5.0); CALCIUM 10.3 mg/dL (8.5-10.1); CREATININE 0.9 mg/dL (0.6-1.0); DIRECT BILIRUBIN 0.1 mg/dL (0.0-0.2); GFR 81.6; TOTAL BILIRUBIN 0.4 mg/dL (0.2-1.0); TOTAL PROTEIN 9.1 g/dL (6.4-8.2)
[2017-01-17 15:18] LABS: POTASSIUM 2.7 mmol/L (3.5-5.1)
[2017-01-17] MEDS ORDERED: POTASSIUM CHLORIDE 20 MEQ TABLET.ER. PO ONE (15:30)
[2017-01-17 16:04] VITALS: BP 151/86
--- NOTE | 2017-01-17 16:12 | PHYS DOC ---
Past Medical History Past Medical History: Hypertension, Migraines, Other Additional Past Medical Histor: Muscle Spasms, left leg wound Past Surgical History: No Surgical History Additional Past Surgical Histo: wound debridment L leg Alcohol Use: None Drug Use: None Adult General Chief Complaint Chief Complaint: CHEST WALL PAIN HPI HPI 46-year-old female presenting to the emergency department today with left lower rib pain and running out of her medications including oxycodone and tramadol. She states her rib pain is been going on for a few days it is sharp shooting pain that is nonradiating intermittent and without alleviating factors. She has a history of high blood pressure but denies high cholesterol, family history of heart disease, or diabetes. She denies ever smoking. She denies unilateral leg swelling hemoptysis or family history of blood clotting disorders. She is not on oral estrogen. She reports taking the Depo shot. She reports the primary reason for being here today is to refill her opioid medications. Review of systems is negative for nausea vomiting diaphoresis fevers chills cough abdominal pain. All other review of systems is negative unless otherwise noted in history of present illness. 46-year-old female presenting to the emergency department with left-sided rib pain which she states is chronic. She takes Percocet and tramadol which she states she ran out of. EKG obtained and reviewed by myself shows sinus rhythm with a regular rate. ST segments congruent with T-wave flattening which is nonspecific. mild anemia. neg trop. Patient's potassium came back low at 2.7. Chest x-ray unremarkable. Otherwise blood work negative. I offered the patient admission to the hospital for chest pain rule out and repletion of potassium with telemetry monitoring which the patient refused. The patient desires to be discharged home with oral past potassium replacement. EKG shows normal intervals. Patient's pain is been present for greater than 24 hours. Heart score calculated to be 3. Unfortunately after reviewing the patient's prescription monitoring program through the [facility] I believe that the patient is up for her new set of medications through her primary care doctor in about a week which I will let her primary care doctor fill the order for. Review of Systems Review of Systems SEE ABOVE. Current Medications Current Medications Current Medications Medications (Trade) Dose Ordered Sig/German Start Time Stop Time Status Last Admin Dose Admin Potassium Chloride (Klor-Con) 40 meq 1X ONCE 01/17/17 15:30 01/17/17 15:31 DC 01/17/17 15:48 40 MEQ Allergies Allergies Allergies Coded Allergies Type Severity Reaction Last Updated Verified sumatriptan Adverse Reaction Intermediate 12/02/16 Yes Physical Exam Physical Exam SEE ABOVE Constitutional: Well developed, well nourished, no acute distress, non-toxic appearance. [] HENT: Normocephalic, atraumatic, bilateral external ears normal, oropharynx moist, no oral exudates, nose normal. Eyes: PERRLA, EOMI, conjunctiva normal, no discharge. [] Neck: Normal range of motion, no tenderness, supple, no stridor. Cardiovascular:Heart rate regular rhythm, no murmur [] Lungs & Thorax: Bilateral breath sounds clear to auscultation Abdomen: Bowel sounds normal, soft, no tenderness, no masses, no pulsatile masses. Skin: Warm, dry, no erythema, no rash. [] Back: No tenderness, no CVA tenderness. [] Extremities: No tenderness, no cyanosis, no clubbing, ROM intact, no edema. Neurologic: Alert and oriented X 3, normal motor function, normal sensory function, no focal deficits noted. [] Psychologic: Affect normal, judgement normal, mood normal. [] Current Patient Data Vital Signs Vital Signs Date Time Temp Pulse Resp B/P (MAP) Pulse Ox O2 Delivery O2 Flow Rate FiO2 01/17/17 16:04 90 18 151/86 (107) 98 Room Air 01/17/17 14:26 98.6 98.6 Lab Values Laboratory Tests Test 01/17/17 14:50 White Blood Count 10.7 x10^3/uL (4.0-11.0) Red Blood Count 3.08 x10^6/uL (3.50-5.40) L Hemoglobin 10.3 g/dL (12.0-15.5) L Hematocrit 30.4 % (36.0-47.0) L Mean Corpuscular Volume 99 fL (79-100) Mean Corpuscular Hemoglobin 33 pg (25-35) Mean Corpuscular Hemoglobin Concent 34 g/dL (31-37) Red Cell Distribution Width 15.5 % (11.5-14.5) H Platelet Count 300 x10^3/uL (140-400) Neutrophils (%) (Auto) 66 % (31-73) Lymphocytes (%) (Auto) 16 % (24-48) L Monocytes (%) (Auto) 8 % (0-9) Eosinophils (%) (Auto) 10 % (0-3) H Basophils (%) (Auto) 1 % (0-3) Neutrophils # (Auto) 7.0 x10^3uL (1.8-7.7) Lymphocytes # (Auto) 1.7 x10^3/uL (1.0-4.8) Monocytes # (Auto) 0.8 x10^3/uL (0.0-1.1) Eosinophils # (Auto) 1.0 x10^3/uL (0.0-0.7) H Basophils # (Auto) 0.1 x10^3/uL (0.0-0.2) Prothrombin Time 14.1 SEC (11.7-14.0) H Prothrombin Time INR 1.2 (0.8-1.1) H PTT 26 SEC (24-38) Sodium Level 142 mmol/L (136-145) Potassium Level 2.7 mmol/L (3.5-5.1) *L Chloride Level 96 mmol/L (98-107) L Carbon Dioxide Level 38 mmol/L (21-32) H Anion Gap 8 (6-14) Blood Urea Nitrogen 10 mg/dL (7-20) Creatinine 0.9 mg/dL (0.6-1.0) Estimated GFR (Cockcroft-Gault) 81.6 Glucose Level 90 mg/dL (70-99) Calcium Level 10.3 mg/dL (8.5-10.1) H Total Bilirubin 0.4 mg/dL (0.2-1.0) Direct Bilirubin 0.1 mg/dL (0.0-0.2) Aspartate Amino Transferase (AST) 13 U/L (15-37) L Alanine Aminotransferase (ALT) 8 U/L (14-59) L Alkaline Phosphatase 69 U/L (46-116) Troponin I Quantitative < 0.017 ng/mL (0.000-0.055) OH-Wud-J-Type Natriuretic Peptide 31 pg/mL (0-124) Total Protein 9.1 g/dL (6.4-8.2) H Albumin 3.5 g/dL (3.4-5.0) Lipase 84 U/L (73-393) Laboratory Tests 01/17/17 14:50 Laboratory Tests 01/17/17 14:50 EKG EKG [] Radiology/Procedures Radiology/Procedures [] Course & Med Decision Making Course & Med Decision Making Pertinent Labs and Imaging studies reviewed. (See chart for details) [] Dragon Disclaimer Dragon Disclaimer This electronic medical record was generated, in whole or in part, using a voice recognition dictation system. Departure Departure Impression: Primary Impression: Medication refill Additional Impression: Chest pain Disposition: HOME, SELF-CARE Condition: STABLE Referrals: NO PCP (PCP) Patient Instructions: Chest Pain (Nonspecific), Potassium (K), Potassium Content of Foods Additional Instructions: Thank you for allowing us to participate in your care today. Followup with your primary care physician in 2-3 days. Call your Primary Doctor tomorrow and inform them of your visit today. If you do not have a primary care provider you can ask for a list of our primary care providers. Return to the emergency department you have any new or concerning findings. This should be evaluated by the primary care physician and any necessary consulting services for continued management within a few days after discharge. Return to emergency room if you have any new or concerning symptoms including but not limited to fever, chills, nausea, vomiting, intractable pain, any new rashes, chest pain, shortness of air, uncontrolled bleeding, difficulty breathing, and/or vision loss. Scripts Potassium Chloride (POTASSIUM CHLORIDE) 10 Meq Capsule.er 10 MEQ PO DAILY for 5 Days, #5 TAB.SR Prov: CHANO EDOUARD MD 01/17/17 Problem Qualifiers CHANO EDOUARD MD Jan 17, 2017 16:12
[2017-01-17] MEDS ORDERED: POTASSIUM CHLO10 MEQ PO (16:13)
[2017-01-18] MEDS ORDERED: MAGN400C PO (21:16)
== END 2017-01-17 16:29 | disposition home or self-care (01) ==
LOC: ER 14:11
DX: R07.89 Other chest pain (principal); Z76.0 Encounter for issue of repeat prescription; I10 Essential (primary) hypertension; G43.909 Migraine, unspecified, not intractable, without status migrainosus; Z88.8 Allergy status to other drugs, medicaments and biological substances
CPT/HCPCS: 36415; 71010; 80048; 80076; 83690; 83880; 84484; 85025; 85610; 85730; 93005; 99285-25

== ENCOUNTER 2017-01-18 15:37 | Emergency (ER) | payer OTHER ==
[~2017-01-18] VITALS: Ht 170.2 cm; Wt 68.0 kg
[~2017-01-18 15:37] MED LIST changes: +POTASSIUM CHLO10 MEQ PO
[2017-01-18] MEDS ORDERED: ONDANSETRON PF 4 MG/2 ML VIAL. IV ONE (18:15)
[2017-01-18] MEDS ORDERED: IV NORMAL SALINE 1000ML BAG 1,000 ML IV ONE (18:15)
[2017-01-18] MEDS ORDERED: HYDROmorphone 2 MG/ML VIAL IV ONE (18:15)
[2017-01-18 18:39] LABS: BASO # 0.1 x10^3/uL (0.0-0.2); BASO % 1 % (0-3); EOS % 7 % (0-3); HEMATOCRIT 29.7 % (36.0-47.0); HEMOGLOBIN 9.9 g/dL (12.0-15.5); LYMPH # 1.8 x10^3/uL (1.0-4.8); LYMPH % 17 % (24-48); MEAN CORPUSCULAR HEMOGLOBIN 33 pg (25-35); MEAN CORPUSCULAR HGB CONC 33 g/dL (31-37); MEAN CORPUSCULAR VOLUME 98 fL (79-100); MONO % 8 % (0-9); NEUT % 67 % (31-73); PLATELET COUNT 317 x10^3/uL (140-400); RED BLOOD COUNT 3.02 x10^6/uL (3.50-5.40); WHITE BLOOD COUNT 10.9 x10^3/uL (4.0-11.0)
--- NOTE | 2017-01-18 18:44 | PHYS DOC ---
Past Medical History Past Medical History: Hypertension, Migraines, Other Additional Past Medical Histor: Muscle Spasms, left leg wound Past Surgical History: No Surgical History Additional Past Surgical Histo: wound debridment L leg Alcohol Use: None Drug Use: None Adult General Chief Complaint Chief Complaint: MULTIPLE COMPLAINTS [facility] HPI Patient is a 46 year old female who presents with withdrawal symptoms from running out of her tramadol and is now complaining of left rib pain and sweatiness and general malaise and nausea. No fever or vomiting diarrhea. Review of Systems Review of Systems Constitutional: Denies fever or chills [] Eyes: Denies change in visual acuity, redness, or eye pain [] HENT: Denies nasal congestion or sore throat [] Respiratory: Denies cough or shortness of breath [] Cardiovascular: No additional information not addressed in HPI [] GI: Denies abdominal pain, nausea, vomiting, bloody stools or diarrhea [] : Denies dysuria or hematuria [] Musculoskeletal: Denies back pain or joint pain [] Integument: Denies rash or skin lesions [] Neurologic: Denies headache, focal weakness or sensory changes [] Endocrine: Denies polyuria or polydipsia [] All other systems were reviewed and found to be within normal limits, except as documented in this note. Current Medications Current Medications Current Medications Medications (Trade) Dose Ordered Sig/[facility] Start Time Stop Time Status Last Admin Dose Admin Acetaminophen (Tylenol) 1,000 mg 1X ONCE 01/18/17 20:45 01/18/17 20:46 DC 01/18/17 20:45 1,000 MG Hydromorphone HCl (Dilaudid) 2 mg 1X ONCE 01/18/17 18:15 01/18/17 18:18 DC 01/18/17 18:34 2 MG Magnesium Oxide (Magnesium Oxide) 400 mg 1X ONCE 01/18/17 20:00 01/18/17 20:01 DC 01/18/17 19:59 400 MG Ondansetron HCl (Zofran) 4 mg 1X ONCE 01/18/17 18:15 01/18/17 18:18 DC 01/18/17 18:34 4 MG Potassium Chloride 10 meq/ Sodium Chloride 105 ml @ 105 mls/hr 1X ONCE 01/18/17 19:45 01/18/17 20:44 DC 01/18/17 19:57 105 MLS/HR Potassium Chloride (Klor-Con) 20 meq 1X ONCE 01/18/17 19:30 01/18/17 19:33 DC 01/18/17 19:58 20 MEQ Sodium Chloride 1,000 ml @ 1,000 mls/hr 1X ONCE 01/18/17 18:15 01/18/17 19:14 DC 01/18/17 18:33 1,000 MLS/HR Allergies Allergies Allergies Coded Allergies Type Severity Reaction Last Updated Verified sumatriptan Adverse Reaction Intermediate 12/02/16 Yes Physical Exam Physical Exam Constitutional: Well developed, well nourished, no acute distress, non-toxic appearance. [] HENT: Normocephalic, atraumatic, bilateral external ears normal, oropharynx moist, no oral exudates, nose normal. [] Eyes: PERRLA, EOMI, conjunctiva normal, no discharge. [] Neck: Normal range of motion, no tenderness, supple, no stridor. [] Cardiovascular:Heart rate regular rhythm, no murmur [] Lungs & Thorax: Bilateral breath sounds clear to auscultation [] Abdomen: Bowel sounds normal, soft, no tenderness, no masses, no pulsatile masses. [] Skin: Warm, dry, no erythema, no rash. [] Back: No tenderness, no CVA tenderness. [] Extremities: No tenderness, no cyanosis, no clubbing, ROM intact, no edema. [] Neurologic: Alert and oriented X 3, normal motor function, normal sensory function, no focal deficits noted. [] Psychologic: Affect normal, judgement normal, mood normal. [] Current Patient Data Vital Signs Vital Signs Date Time Temp Pulse Resp B/P (MAP) Pulse Ox O2 Delivery O2 Flow Rate FiO2 01/18/17 20:48 91 16 121/79 (93) 95 Room Air 01/18/17 16:05 98.6 98.6 Lab Values Laboratory Tests Test 01/18/17 18:29 01/18/17 19:29 White Blood Count 10.9 x10^3/uL (4.0-11.0) Red Blood Count 3.02 x10^6/uL (3.50-5.40) L Hemoglobin 9.9 g/dL (12.0-15.5) L Hematocrit 29.7 % (36.0-47.0) L Mean Corpuscular Volume 98 fL (79-100) Mean Corpuscular Hemoglobin 33 pg (25-35) Mean Corpuscular Hemoglobin Concent 33 g/dL (31-37) Red Cell Distribution Width 15.0 % (11.5-14.5) H Platelet Count 317 x10^3/uL (140-400) Neutrophils (%) (Auto) 67 % (31-73) Lymphocytes (%) (Auto) 17 % (24-48) L Monocytes (%) (Auto) 8 % (0-9) Eosinophils (%) (Auto) 7 % (0-3) H Basophils (%) (Auto) 1 % (0-3) Neutrophils # (Auto) 7.3 x10^3uL (1.8-7.7) Lymphocytes # (Auto) 1.8 x10^3/uL (1.0-4.8) Monocytes # (Auto) 0.8 x10^3/uL (0.0-1.1) Eosinophils # (Auto) 0.8 x10^3/uL (0.0-0.7) H Basophils # (Auto) 0.1 x10^3/uL (0.0-0.2) Sodium Level 140 mmol/L (136-145) Potassium Level 2.6 mmol/L (3.5-5.1) *L Chloride Level 100 mmol/L (98-107) Carbon Dioxide Level 26 mmol/L (21-32) Anion Gap 14 (6-14) Blood Urea Nitrogen 13 mg/dL (7-20) Creatinine 0.9 mg/dL (0.6-1.0) Estimated GFR (Cockcroft-Gault) 81.6 BUN/Creatinine Ratio 14 (6-20) Glucose Level 82 mg/dL (70-99) Calcium Level 9.8 mg/dL (8.5-10.1) Total Bilirubin 0.3 mg/dL (0.2-1.0) Aspartate Amino Transferase (AST) 13 U/L (15-37) L Alanine Aminotransferase (ALT) 7 U/L (14-59) L Alkaline Phosphatase 64 U/L (46-116) Total Protein 8.4 g/dL (6.4-8.2) H Albumin 3.2 g/dL (3.4-5.0) L Albumin/Globulin Ratio 0.6 (1.0-1.7) L Magnesium Level 1.7 mg/dL (1.8-2.4) L Laboratory Tests 01/18/17 18:29 Laboratory Tests 01/18/17 18:29 EKG EKG Sinus rhythm rate of 93 no STEMI QTC 425 ST segment depression in V3 through the 5 my interpretation[] Radiology/Procedures Radiology/Procedures Chest x-ray no acute pulmonary or cardiac process my interpretation.[] Course & Med Decision Making Course & Med Decision Making Pertinent Labs and Imaging studies reviewed. (See chart for details) Potassium low and supplemented orally.] Dragon Disclaimer Dragon Disclaimer This electronic medical record was generated, in whole or in part, using a voice recognition dictation system. Departure Departure Impression: Primary Impression: Hypokalemia Additional Impression: Chronic pain Disposition: 01 HOME, SELF-CARE Condition: IMPROVED Referrals: NO PCP (PCP) Scripts Magnesium Oxide (MAGNESIUM) 400 Mg Capsule 1 CAP PO DAILY, #10 CAP 0 Refills Prov: HUBER ROSE MD 01/18/17 Problem Qualifiers HUBER ROSE MD Jan 18, 2017 18:44
[2017-01-18 19:02] LABS: ALBUMIN 3.2 g/dL (3.4-5.0); ALBUMIN/GLOBULIN RATIO 0.6 (1.0-1.7); CALCIUM 9.8 mg/dL (8.5-10.1); CREATININE 0.9 mg/dL (0.6-1.0); GFR 81.6; TOTAL BILIRUBIN 0.3 mg/dL (0.2-1.0); TOTAL PROTEIN 8.4 g/dL (6.4-8.2)
[2017-01-18 19:12] LABS: POTASSIUM 2.6 mmol/L (3.5-5.1)
[2017-01-18] MEDS ORDERED: POTASSIUM CHLORIDE 20 MEQ TABLET.ER. PO ONE ×2 (19:15→19:30)
[2017-01-18] MEDS ORDERED: POTASSIUM CHLORIDE 10 MEQ in IV NORMAL SALINE 100ML 100 ML IV ONE (19:45)
[2017-01-18] MEDS ORDERED: MAGNESIUM OXIDE 400 MG TABLET PO ONE (20:00)
[2017-01-18] MEDS ORDERED: ACETAMINOPHEN 500 MG TABLET PO ONE (20:45)
[2017-01-18 20:48] VITALS: BP 121/79
[2017-01-18] MEDS ORDERED: MAGN400C PO (21:16)
--- NOTE | 2017-01-19 07:00 | EKG ---
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
--- NOTE | 2017-01-19 08:31 | RAD ---
Portable chest, 01/18/2017: History: Cough, left-sided pain Comparison is made to a study from 01/17/2017. The heart size and pulmonary vascularity are normal. Mild infiltrate in the lateral left base appears to have worsened slightly. Blunting of left lateral costophrenic angle suggests a small amount of associated pleural fluid versus scarring. The right chest is clear. IMPRESSION: Slight worsening of the mild left basilar infiltrate with a possible small associated pleural effusion.
== END 2017-01-18 21:29 | disposition home or self-care (01) ==
LOC: ER 15:37
DX: G89.29 Other chronic pain (principal); R07.81 Pleurodynia; E87.6 Hypokalemia; G43.909 Migraine, unspecified, not intractable, without status migrainosus; I10 Essential (primary) hypertension; Z88.8 Allergy status to other drugs, medicaments and biological substances
CPT/HCPCS: 36415; 71010; 80053; 83735; 85025; 93005; 96361; 96365; 96375; 99285; J1170; J2405; J7030

== ENCOUNTER 2017-01-20 09:12 | Emergency (ER) | payer OTHER ==
[~2017-01-20] VITALS: Ht 170.2 cm; Wt 68.0 kg
[2017-01-20 09:15] VITALS: BP 153/84
--- NOTE | 2017-01-20 09:44 | PHYS DOC ---
Past Medical History Past Medical History: Hypertension, Migraines, Other Additional Past Medical Histor: Muscle Spasms, left leg wound Past Surgical History: Other Additional Past Surgical Histo: wound debridment L leg Alcohol Use: None Drug Use: None Adult General Chief Complaint Chief Complaint: MEDICATION REFILL [facility] HPI Patient is a 46 year old female to the emergency department stating that she is here for medication refill of her tramadol. Patient was seen here on 01/17 for refill of her medication as well however at that time her potassium was noted to be low. She is provided with a potassium supplement. She was recommended to follow up within the next 2-3 days. Patient states that she had called her primary care physician to follow-up however was told that the office had moved. She states that she went to the office to verify that he had moved and there was no [facility] their facility. Patient states that she had attempted to do to the doctor's office to get a refill of her tramadol however she continues to state that the officer). She states that she's been out of her medication for the last 7-8 days. The patient changes her story and states that she had lost her prescription on her way back from [place]. She has not tried to contact her primary care physician by phone. She does continue to state that she has gone to the office without any physician being at that location. Review of Systems Review of Systems Constitutional: Denies fever or chills [] Eyes: Denies change in visual acuity, redness, or eye pain [] HENT: Denies nasal congestion or sore throat [] Respiratory: Denies cough or shortness of breath [] Cardiovascular: No additional information not addressed in HPI [] GI: Denies abdominal pain, nausea, vomiting, bloody stools or diarrhea [] : Denies dysuria or hematuria [] Musculoskeletal: Denies back pain or joint pain [] Integument: Denies rash or skin lesions [] Neurologic: Denies headache, focal weakness or sensory changes [] Endocrine: Denies polyuria or polydipsia [] All other systems were reviewed and found to be within normal limits, except as documented in this note. Current Medications Current Medications Current Medications Medications (Trade) Dose Ordered Sig/German Start Time Stop Time Status Last Admin Dose Admin Ibuprofen (Motrin) 800 mg 1X ONCE 01/20/17 09:45 01/20/17 09:46 UNV Allergies Allergies Allergies Coded Allergies Type Severity Reaction Last Updated Verified sumatriptan Adverse Reaction Intermediate 12/02/16 Yes Physical Exam Physical Exam Constitutional: Well developed, well nourished, no acute distress, non-toxic appearance. [] HENT: Normocephalic, atraumatic, bilateral external ears normal, oropharynx moist, no oral exudates, nose normal. [] Eyes: PERRLA, EOMI, conjunctiva normal, no discharge. [] Neck: Normal range of motion, no tenderness, supple, no stridor. [] Cardiovascular:Heart rate regular rhythm, no murmur [] Lungs & Thorax: Bilateral breath sounds clear to auscultation [] Skin: Warm, dry, no erythema, no rash. [] Extremities: No tenderness, no cyanosis, no clubbing, ROM intact, no edema. [] Neurologic: Alert and oriented X 3, normal motor function, normal sensory function, no focal deficits noted. [] Psychologic: Affect normal, judgement normal, mood normal. [] Current Patient Data Vital Signs Vital Signs Date Time Temp Pulse Resp B/P (MAP) Pulse Ox O2 Delivery O2 Flow Rate FiO2 01/20/17 09:15 97.8 74 18 97 Room Air 97.8 EKG EKG [] Radiology/Procedures Radiology/Procedures [] Course & Med Decision Making Course & Med Decision Making Pertinent Labs and Imaging studies reviewed. (See chart for details) Patient regards to medication refill in the emergency department. Explained to her that we do not refill chronic pain medications in the emergency department. He requested on Ultram here in the emergency department. I have agreed to provide her with one tablet here in the emergency department if her right was here and could see them. Patient states she did have a ride and then later state of my right his left eye to have one. Patient then requested ibuprofen which was ordered however the patient has eloped from the department prior to receiving her ibuprofen and her discharge instructions. I've spoken with the patient and/or caregivers. I've explained the patient's condition, diagnosis and treatment plan based on information available to me at this time. I've answered the patient's and/or caregivers questions and addressed any concerns. The patient and/or caregivers have a good understanding the patient's diagnosis, condition and treatment plan as can be expected at this point. Vital signs have been stabilized. The patient's condition is stable for discharge from the emergency department. The patient will pursue further outpatient evaluation with her primary care provider or other designated consulting physician as outlined in the discharge instructions. Patient and/or caregivers are agreeable to this plan of care and follow-up instructions have been explained in detail. The patient and/or caregivers have received these instructions in written format and expressed understanding of these discharge instructions. The patient and her caregivers are aware that if any significant change in condition or worsening of symptoms should prompt him to immediately return to this of the closest emergency department.~ If an emergent department is not readily available I would encourage him to call 911. Kenan Disclaimer Dragon Disclaimer This electronic medical record was generated, in whole or in part, using a voice recognition dictation system. Departure Departure Impression: Primary Impression: Medication refill Additional Impressions: Chronic pain Drug-seeking behavior Disposition: 01 HOME, SELF-CARE Condition: STABLE Referrals: NO PCP (PCP) Patient Instructions: Chronic Pain Management-Brief, Medication Refill, Emergency Department Additional Instructions: Activity as tolerated The emergency department does refill chronic pain medications Followup with your primary care provider for further refills Return to emergency department as needed for signs and symptoms that become worse. Problem Qualifiers BERNA COX [employer] COLUMN OPERATOR Jan 20, 2017 09:44
[2017-01-20] MEDS ORDERED: IBUPROFEN 800 MG TABLET. PO ONE (09:45)
== END 2017-01-20 09:45 | disposition home or self-care (01) ==
LOC: ER 09:12
DX: Z76.0 Encounter for issue of repeat prescription (principal); G89.29 Other chronic pain; I10 Essential (primary) hypertension; G43.909 Migraine, unspecified, not intractable, without status migrainosus; Z88.8 Allergy status to other drugs, medicaments and biological substances; Z76.5 Malingerer [conscious simulation]
CPT/HCPCS: 99281

== ENCOUNTER → 2017-01-20 | Outpatient (CLI) | payer OTHER ==
[~2017-01-20] MED LIST changes: +MAGN400C PO
[2017-01-20 09:15] VITALS: BP 153/84
== END | disposition home or self-care (01) ==
LOC: PMGWOUND 09:46
PROVIDERS: ATTEND Preventive Medicine Undersea and Hyperbaric Medicine
DX: I87.312 Chronic venous hypertension (idiopathic) with ulcer of left lower extremity (principal); L97.325 Non-pressure chronic ulcer of left ankle with muscle involvement without evidence of necrosis; I73.9 Peripheral vascular disease, unspecified; E78.5 Hyperlipidemia, unspecified; J45.909 Unspecified asthma, uncomplicated; F15.90 Other stimulant use, unspecified, uncomplicated; M19.90 Unspecified osteoarthritis, unspecified site; G62.9 Polyneuropathy, unspecified; G89.4 Chronic pain syndrome
CPT/HCPCS: 29581; 97597; 97598

== ENCOUNTER → 2017-02-03 | Outpatient (CLI) | payer OTHER ==
[2017-01-20 09:15] VITALS: BP 153/84
== END | disposition home or self-care (01) ==
LOC: PMGWOUND 10:06
PROVIDERS: ATTEND Preventive Medicine Undersea and Hyperbaric Medicine
DX: I87.312 Chronic venous hypertension (idiopathic) with ulcer of left lower extremity (principal); L97.325 Non-pressure chronic ulcer of left ankle with muscle involvement without evidence of necrosis; S81.802D Unspecified open wound, left lower leg, subsequent encounter; G89.4 Chronic pain syndrome; E78.5 Hyperlipidemia, unspecified; I73.9 Peripheral vascular disease, unspecified; G62.9 Polyneuropathy, unspecified; J45.909 Unspecified asthma, uncomplicated; M19.90 Unspecified osteoarthritis, unspecified site; X58.XXXD Exposure to other specified factors, subsequent encounter
CPT/HCPCS: 17250; 29581; 97597

== ENCOUNTER 2017-12-13 15:14 | Emergency (ER) | payer SELFPAY ==
[~2017-12-13] VITALS: Ht 170.2 cm; Wt 65.8 kg
[~2017-12-13 15:14] MED LIST changes: -AMLO5TAB2 PO; +AMLO5TAB7 PO; +NAPR-514 PO; -NAPR500T4 PO; +POTA10TA12 PO; -POTASSIUM CHLO10 MEQ PO
[2017-12-13 16:00] VITALS: BP 118/84
[2017-12-13] MEDS ORDERED: TRAM50TA PO (16:19)
--- NOTE | 2017-12-13 16:19 | PHYS DOC ---
Past Medical History Past Medical History: Hypertension, Migraines, Other Additional Past Medical Histor: Muscle Spasms, left leg wound Past Surgical History: Other Additional Past Surgical Histo: wound debridment L leg Alcohol Use: None Drug Use: None Adult General Chief Complaint Chief Complaint: MEDICATION REFILL [facility] HPI Patient is a 47 year old female who was presents today requesting a refill for tramadol which she takes for chronic migraine headaches. She states she ran out of the medications a couple days ago and has an appointment with her own PCP next week. PCP Dr. Deonte Manning Review of Systems Review of Systems Constitutional: Medication refill. Denies fever or chills [] Eyes: Denies change in visual acuity, redness, or eye pain [] HENT: Denies nasal congestion or sore throat [] Respiratory: Denies cough or shortness of breath [] Cardiovascular: No additional information not addressed in HPI [] GI: Denies abdominal pain, nausea, vomiting, bloody stools or diarrhea [] : Denies dysuria or hematuria [] Musculoskeletal: Denies back pain or joint pain [] Integument: Denies rash or skin lesions [] Neurologic: Denies headache, focal weakness or sensory changes [] All other systems were reviewed and found to be within normal limits, except as documented in this note. Allergies Allergies Allergies Coded Allergies Type Severity Reaction Last Updated Verified sumatriptan Adverse Reaction Intermediate 12/02/16 Yes Physical Exam Physical Exam Constitutional: Well developed, well nourished, no acute distress, non-toxic appearance. [] HENT: Normocephalic, atraumatic, bilateral external ears normal, oropharynx moist, no oral exudates, nose normal. [] Eyes: PERRLA, EOMI, conjunctiva normal, no discharge. [] Neck: Normal range of motion, no tenderness, supple, no stridor. [] Cardiovascular:Heart rate regular rhythm, no murmur [] Lungs & Thorax: Bilateral breath sounds clear to auscultation [] Abdomen: Bowel sounds normal, soft, no tenderness, no masses, no pulsatile masses. [] Skin: Warm, dry, no erythema, no rash. [] Back: No tenderness, no CVA tenderness. [] Extremities: No tenderness, no cyanosis, no clubbing, ROM intact, no edema. [] Neurologic: Alert and oriented X 3, normal motor function, normal sensory function, no focal deficits noted. [] Psychologic: Affect normal, judgement normal, mood normal. [] Current Patient Data Vital Signs Vital Signs Date Time Temp Pulse Resp B/P (MAP) Pulse Ox O2 Delivery O2 Flow Rate FiO2 12/13/17 16:00 98.0 100 16 118/84 (95) 99 Room Air 98.0 EKG EKG [] Radiology/Procedures Radiology/Procedures [] Course & Med Decision Making Course & Med Decision Making Pertinent Labs and Imaging studies reviewed. (See chart for details) This is a 47-year-old female patient presenting to the ED today with request for medication refill for tramadol which she takes for migraine headaches. Ktra shows this patient receives her tramadol on monthly basis from her PCP. She only has one prescriber. Last prescribed, Tramadol was November 02, 2018 for one month supply. Rx for short supply of tramadol given. Staff Physician Addendum: I was working in the ER during the course of this patient's visit. I was available for consultation as needed, but I was not directly involved in the care of this patient. Dragon Disclaimer Dragon Disclaimer This electronic medical record was generated, in whole or in part, using a voice recognition dictation system. Departure Departure Impression: Primary Impression: Medication refill Disposition: 01 HOME, SELF-CARE Condition: STABLE Referrals: UNKNOWN PCP NAME (PCP) follow up as soon as you can Patient Instructions: Medication Refill, Emergency Department Additional Instructions: We gave you a short supply of tramadol. Ensure you follow-up with your doctor next week. Do not drive or operate machinery on this medication. Scripts Tramadol Hcl (TRAMADOL HCL) 50 Mg Tablet 50 MG PO Q6HRS PRN for PAIN, #30 TAB Prov: NATHAN LEDBETTER APRN 12/13/17 NATHAN LEDBETTER APRN Dec 13, 2017 16:19 INESSA KING MD Dec 13, 2017 16:58
== END 2017-12-13 16:33 | disposition home or self-care (01) ==
LOC: ER 15:14
DX: G89.29 Other chronic pain (principal); G43.909 Migraine, unspecified, not intractable, without status migrainosus; I10 Essential (primary) hypertension; Z88.8 Allergy status to other drugs, medicaments and biological substances
CPT/HCPCS: 99283

== ENCOUNTER 2018-11-01 09:00 | Emergency (ER) | payer SELFPAY ==
[~2018-11-01] VITALS: Ht 170.2 cm; Wt 62.2 kg
[~2018-11-01 09:00] MED LIST changes: +ALBU2.5V8 IH; +AMLO5TAB10 PO; -AMLO5TAB7 PO; +CARV3.1210 PO; -CARV3.122 PO; -GABA-586 PO; +GABA300C18 PO; +HYDR-3164 PO; -HYDR-971 PO; +OXYC5TAB4 PO; -OXYC5TAB95 PO; -PROVENTIL HFA6.7 GM IH
[2018-11-01 09:05] VITALS: BP 157/88
[2018-11-01] MEDS ORDERED: TRAM-48 PO (09:41)
--- NOTE | 2018-11-01 09:41 | PHYS DOC ---
Past Medical History Past Medical History: Hypertension, Migraines, Other Additional Past Medical Histor: Muscle Spasms, left leg wound Past Surgical History: Other Additional Past Surgical Histo: wound debridment L leg Alcohol Use: None Drug Use: None Adult General Chief Complaint Chief Complaint: MEDICATION REFILL [facility] HPI Patient is a 47 year old female who presents with requesting a medication refill. Patient states she is taking tramadol for long time and ran out of her medication and was not able to see her physician and requesting for refill of tramadol. Review of Systems Review of Systems Constitutional: Denies fever or chills [] Eyes: Denies change in visual acuity, redness, or eye pain [] HENT: Denies nasal congestion or sore throat [] Respiratory: Denies cough or shortness of breath [] Cardiovascular: No additional information not addressed in HPI [] GI: Denies abdominal pain, nausea, vomiting, bloody stools or diarrhea [] : Denies dysuria or hematuria [] Musculoskeletal: Denies back pain and joint pain Integument: Denies rash or skin lesions [] Neurologic: Denies headache, focal weakness or sensory changes [] Endocrine: Denies polyuria or polydipsia [] All other systems were reviewed and found to be within normal limits, except as documented in this note. Allergies Allergies Allergies Coded Allergies Type Severity Reaction Last Updated Verified sumatriptan Adverse Reaction Intermediate 12/02/16 Yes Physical Exam Physical Exam Constitutional: Well developed, well nourished, no acute distress, non-toxic appearance. [] HENT: Normocephalic, atraumatic. Eyes: PERRLA, EOMI, conjunctiva normal, no discharge. [] Neck: Normal range of motion, no tenderness, supple, no stridor. [] Cardiovascular:Heart rate regular rhythm, no murmur [] Lungs & Thorax: Bilateral breath sounds clear to auscultation [] Extremities: No tenderness, no cyanosis, no clubbing, ROM intact, no edema. [] Neurologic: Alert and oriented X 3, no focal deficits noted. [] Psychologic: Affect normal, judgement normal, mood normal. [] Current Patient Data Vital Signs Vital Signs Date Time Temp Pulse Resp B/P (MAP) Pulse Ox O2 Delivery O2 Flow Rate FiO2 11/01/18 09:05 97.7 98 18 157/88 (111) 97 Room Air 97.7 EKG EKG [] Radiology/Procedures Radiology/Procedures [] Course & Med Decision Making Course & Med Decision Making discharge: I've spoken with the patient and/or caregivers. I've explained the patient's condition, diagnosis and treatment plan based on information available to me at this time. I've answered the patient's and/or caregivers questions and addressed any concerns. The patient and/or caregivers have a good understanding the patient's diagnosis, condition and treatment plan as can be expected at this point. Vital signs have been stabilized. The patient's condition is stable for discharge from the emergency department. The patient will pursue further outpatient evaluation with her primary care provider or other designated consulting physician as outlined in the discharge instructions. Patient and/or caregivers are agreeable to this plan of care and follow-up instructions have been explained in detail. The patient and/or caregivers have received these instructions in written format and expressed understanding of these discharge instructions. The patient and her caregivers are aware that if any significant change in condition or worsening of symptoms should prompt him to immediately return to this of the closest emergency department. If an emergent department is not readily available I would encourage him to call 911. Kenan Disclaimer Dragon Disclaimer This electronic medical record was generated, in whole or in part, using a voice recognition dictation system. Departure Departure Impression: Primary Impression: Medication refill Disposition: HOME, SELF-CARE (at 0 [phone]) Condition: STABLE Referrals: ZACHARY SMITH MD (PCP) Patient Instructions: Medication Refill, Emergency Department Additional Instructions: Follow up with your primary care physician for medication refill Scripts Tramadol Hcl (ULTRAM) 50 Mg Tablet 50 MG PO Q6HRS PRN for PAIN, #10 TAB 0 Refills Prov: KRISTEN HEART MD 11/01/18 KRISTEN HEART MD Nov 01, 2018 09:41
== END 2018-11-01 10:08 | disposition home or self-care (01) ==
LOC: ER 09:00
DX: G43.909 Migraine, unspecified, not intractable, without status migrainosus (principal); Z76.0 Encounter for issue of repeat prescription; I10 Essential (primary) hypertension
CPT/HCPCS: 99283

== ENCOUNTER 2018-11-14 17:30 | Emergency (ER) | payer SELFPAY ==
[~2018-11-14] VITALS: Ht 170.2 cm; Wt 67.6 kg
[~2018-11-14 17:30] MED LIST changes: +LISI1TAB20 PO; -LISI1TAB7 PO
[2018-11-14 17:45] VITALS: BP 183/92
[2018-11-14] MEDS ORDERED: MORPHINE SULFATE 10 MG/ML VIAL. IM ONE (18:45)
[2018-11-14] MEDS ORDERED: TRAM50TA PO (18:55)
--- NOTE | 2018-11-14 18:58 | PHYS DOC ---
Past Medical History Past Medical History: Hypertension, Migraines, Other Additional Past Medical Histor: Muscle Spasms, left leg wound (NATHAN ELDBETTER APRN) Past Surgical History: Other Additional Past Surgical Histo: wound debridment L leg (NATHAN LEDBETTER APRN) Alcohol Use: None Drug Use: None (NATHAN LEDBETTER APRN) Adult General Chief Complaint Chief Complaint: WOUND CHECK HPI HPI Patient is a 47 year old female with hx of HTN, Migraines, who presents to the ED requesting a refill of pain medication, patient is on tramadol or oxycodone for chronic wound on her left lower extremity. She states she has not seen her PCP for the refill of the medication because the PCP is out of town. She states she follows up with the wound clinic for wound care she is also requesting supplies for wound care. (NATHAN LEDBETTER APRN) Review of Systems Review of Systems Constitutional: Denies fever or chills [] Musculoskeletal: Denies back pain or joint pain [] Integument: Reports left lower extremity wound-chronic and refill for pain medication Neurologic: Denies headache, focal weakness or sensory changes [] All other systems were reviewed and found to be within normal limits, except as documented in this note. (NATHAN LEDBETTER APRN) Current Medications Current Medications Current Medications Medications (Trade) Dose Ordered Sig/German Start Time Stop Time Status Last Admin Dose Admin Morphine Sulfate (Morphine Sulfate) 5 mg 1X ONCE 11/14/18 18:45 11/14/18 18:46 DC 11/14/18 19:04 5 MG (MARK WILLIAMSON DO) Allergies Allergies Allergies Coded Allergies Type Severity Reaction Last Updated Verified sumatriptan Adverse Reaction Intermediate 12/02/16 Yes (MARK WILLIAMSON DO) Physical Exam Physical Exam Constitutional: Well developed, well nourished, no acute distress, non-toxic appearance. [] Skin: Left inner ankle with an open wound approximately 12 x 8 cm, the wound appears chronic, unfortunately patient has no dressing on the wound, paper towel is being used as dressing.There is yellow drainage noted coming from the wound. +1 left pedal pulse. Full range of motion to the left foot. This wound appears poorly cared for. Back: No tenderness, no CVA tenderness. [] Extremities: No tenderness, no cyanosis, no clubbing, ROM intact, no edema. [] Neurologic: Alert and oriented X 3, normal motor function, normal sensory function, no focal deficits noted. [] Psychologic: Affect normal, judgement normal, mood normal. [] (NATHAN LEDBETTER APRN) Current Patient Data Vital Signs Vital Signs Date Time Temp Pulse Resp B/P (MAP) Pulse Ox O2 Delivery O2 Flow Rate FiO2 11/14/18 17:45 97.8 101 18 183/92 (122) 96 Room Air 97.8 (MARK WILLIAMSON DO) EKG EKG [] (NATHAN LEDBETTER APRN) Radiology/Procedures Radiology/Procedures [] (NATHAN LEDBETTER APRN) Course & Med Decision Making Course & Med Decision Making Pertinent Labs and Imaging studies reviewed. (See chart for details) This is a 47-year-old female patient presenting to the ED today requesting a refill of her pain medication and her tramadol/ oxycodone which she takes for chronic wound on the left ankle, the wound looks poorly cared for, offered patient a workup which she declined. We did provide her with new clean and dry dressing changes for use at home. Gave her prescription for tramadol. (NATHAN LEDBETTER APRN) Dragon Disclaimer Dragon Disclaimer This electronic medical record was generated, in whole or in part, using a voice recognition dictation system. (NATHAN LEDBETTER APRN) Departure Departure Impression: Primary Impression: Non-healing wound of lower extremity Additional Impression: Medication refill Disposition: 01 HOME, SELF-CARE Condition: STABLE Referrals: ZACHARY SMITH MD (PCP) follow up in the course of this week Patient Instructions: Wound Check Additional Instructions: You have a chronic wound to the left leg. Please follow up with the wound clinic as well as you doctor. Scripts Tramadol Hcl (TRAMADOL HCL) 50 Mg Tablet 50 MG PO Q6HRS PRN for PAIN, #15 TAB Prov: NATHAN LEDBETTER APRN 11/14/18 Attending Signature Attending Signature I have reviewed the PA/DECORATING AND ASSEMBLY SUPERVISOR's note and plan of care. I was available for consultation as needed during the patient's visit in the emergency department. I agree with the clinical impression, plan, and disposition. (MARK WILLIAMSON DO) Problem Qualifiers Primary Impression: Non-healing wound of lower extremity Encounter type: initial encounter Laterality: left Qualified Codes: S81. 802A - Unspecified open wound, left lower leg, initial encounter NATHAN LEDBETTER APRN Nov 14, 2018 18:58 MARK WILLIAMSON DO Nov 15, 2018 03:58
== END 2018-11-14 19:31 | disposition home or self-care (01) ==
LOC: ER 17:30
DX: T81.89XA Other complications of procedures, not elsewhere classified, initial encounter (principal); I10 Essential (primary) hypertension; G43.909 Migraine, unspecified, not intractable, without status migrainosus; Z88.8 Allergy status to other drugs, medicaments and biological substances
CPT/HCPCS: 96372; 99283; J2270

== ENCOUNTER 2019-07-01 18:45 | Emergency (ER) | payer SELFPAY ==
[~2019-07-01] VITALS: Ht 170.2 cm; Wt 64.0 kg
[~2019-07-01 18:45] MED LIST changes: -ALBU2.5V8 IH; +POTA20TA4 PO; -POTA20TA82 PO; +PROVENTIL HFA6.7 GM IH
[2019-07-01 20:07] VITALS: BP 152/88
[2019-07-01] MEDS ORDERED: TRAM50TA PO (20:39)
--- NOTE | 2019-07-01 20:39 | PHYS DOC ---
Past Medical History Past Medical History: Hypertension, Migraines, Other Additional Past Medical Histor: Muscle Spasms, left leg wound Past Surgical History: Other Additional Past Surgical Histo: wound debridment L leg Smoking Status: Never Smoker Alcohol Use: None Drug Use: None General Adult EDM: Chief Complaint: HEADACHE HPI: HPI: Patient is a 48 year old female who presents with complaint of migraine headaches. Patient states that she has been prescribed Percocet for the migraines but she states that that makes her feel sick. She states that tramadol is typically sufficient. She rates headache at a 6 out of 10 currently. She denies any nausea or vomiting today. She also denies any chest pain, shortness breath or fever. She does admit to some photophobia.[] Review of Systems: Review of Systems: Constitutional: Denies fever or chills. [] Eyes: Denies change in visual acuity. [] Respiratory: Denies cough or shortness of breath. [] Cardiovascular: Denies chest pain or edema. [] Neurologic: Complains of headache without focal weakness or sensory changes. [] Heart Score: Risk Factors: Risk Factors: DM, Current or recent (<one month) smoker, HTN, HLP, family history of CAD, obesity. Risk Scores: Score 0 - 3: 2.5% MACE over next 6 weeks - Discharge Home Score 4 - 6: 20.3% MACE over next 6 weeks - Admit for Clinical Observation Score 7 - 10: 72.7% MACE over next 6 weeks - Early Invasive Strategies Allergies: Allergies: Allergies Coded Allergies Type Severity Reaction Last Updated Verified sumatriptan Adverse Reaction Intermediate 12/02/16 Yes Physical Exam: PE: Constitutional: Well developed, well nourished, no acute distress, non-toxic appearance. [] Cardiovascular:Heart rate regular rhythm, no murmur [] Lungs & Thorax: Bilateral breath sounds clear to auscultation [] Abdomen: Bowel sounds normal, soft, no tenderness, no masses, no pulsatile masses. [] Skin: Warm, dry, no erythema, no rash. [] Neurologic: Alert and oriented X 3, no focal deficits noted. [] Current Patient Data: Labs: Laboratory Tests Test 07/01/19 19:40 POC Urine HCG, Qualitative Hcg negative (Negative) Vital Signs: Vital Signs Date Time Temp Pulse Resp B/P (MAP) Pulse Ox O2 Delivery O2 Flow Rate FiO2 07/01/19 20:07 92 16 97 07/01/19 19:16 97.9 212/112 (145) Room Air 97.9 EKG: EKG: [] Radiology/Procedures: Radiology/Procedures: [] Course & Med Decision Making: Course & Med Decision Making Pertinent Labs and Imaging studies reviewed. (See chart for details) [] Dragon Disclaimer: Dragon Disclaimer: This electronic medical record was generated, in whole or in part, using a voice recognition dictation system. Departure Departure Impression: Primary Impression: Migraine Qualified Codes: G43.909 - Migraine, unspecified, not intractable, without status migrainosus Disposition: HOME, SELF-CARE Condition: STABLE Referrals: ZACHARY SMITH MD (PCP) Patient Instructions: Migraine Headache Scripts Tramadol Hcl (TRAMADOL HCL) 50 Mg Tablet 50 MG PO Q6HRS PRN for PAIN, #20 TAB Prov: DANIEL IBANEZ Jr. DO 07/01/19 DANIEL IBANEZ Jr. DO Jul 01, 2019 20:39
== END 2019-07-01 20:45 | disposition home or self-care (01) ==
LOC: ER 18:45
DX: G43.909 Migraine, unspecified, not intractable, without status migrainosus (principal); H53.149 Visual discomfort, unspecified; I10 Essential (primary) hypertension; Z98.890 Other specified postprocedural states; Z88.8 Allergy status to other drugs, medicaments and biological substances
CPT/HCPCS: 81025; 99283

== ENCOUNTER 2019-07-06 12:59 | Emergency (ER) | payer SELFPAY ==
[~2019-07-06] VITALS: Ht 170.2 cm; Wt 64.5 kg
[~2019-07-06 12:59] MED LIST changes: -CLOB15CR2 TP; +CLOB15CR27 TP; -PREG50CA PO; +PREG50CA91 PO
--- NOTE | 2019-07-06 13:28 | PHYS DOC ---
Past Medical History Past Medical History: Hypertension, Migraines, Other Additional Past Medical Histor: Muscle Spasms, left leg wound (CASSANDRA PROCTOR APRN) Past Surgical History: Other Additional Past Surgical Histo: wound debridment L leg (CASSANDRA PROCTOR APRN) Smoking Status: Never Smoker Alcohol Use: None Drug Use: None (CASSANDRA PROCTOR APRN) General Adult EDM: Chief Complaint: HEADACHE HPI: HPI: Patient is a 48 year old AA female, who has a history of high blood pressure and migraines who presents to the emergency department today with a request for refill of her tramadol. Patient states that she was at her kitchen sink earlier today when she accidentally dumped the medication down the drain. Because she was unable to take her tramadol she has having 1 of her chronic migraines. She denies any vision changes, nausea, vomiting, abdominal pain, ear pain, sore throat, cough, shortness of breath, body aches, or fatigue. She currently rates her pain 10 out of 10 on the pain scale, she states that the only thing that helps her when she has these headaches is her tramadol. She tried to call her primary care doctor but they do not have an appointment for 2 weeks. Patient states she was told to come to the emergency room for a refill of her controlled substance. (CASSANDRA PROCTOR APRN) Review of Systems: Review of Systems: Constitutional: Denies fever or chills. [] Eyes: Denies change in visual acuity. [] HENT: Denies nasal congestion or sore throat. [] Respiratory: Denies cough or shortness of breath. [] Cardiovascular: Denies chest pain or edema. [] GI: Denies abdominal pain, nausea, vomiting, bloody stools or diarrhea. [] Musculoskeletal: Denies back pain or joint pain. [] Integument: Denies rash. [] Neurologic: Denies focal weakness or sensory changes. [] Psychiatric: Denies depression or anxiety. [] (CASSANDRA PROCTOR APRN) Heart Score: Risk Factors: Risk Factors: DM, Current or recent (<one month) smoker, HTN, HLP, family history of CAD, obesity. Risk Scores: Score 0 - 3: 2.5% MACE over next 6 weeks - Discharge Home Score 4 - 6: 20.3% MACE over next 6 weeks - Admit for Clinical Observation Score 7 - 10: 72.7% MACE over next 6 weeks - Early Invasive Strategies (CASSANDRA PROCTOR APRN) Allergies: Allergies: Allergies Coded Allergies Type Severity Reaction Last Updated Verified sumatriptan Adverse Reaction Intermediate 12/02/16 Yes (CASSANDRA PROCTOR APRN) Physical Exam: PE: Constitutional: Well developed, well nourished, no acute distress, non-toxic appearance. [] HENT: Normocephalic, atraumatic, bilateral external ears normal, oropharynx moist, no oral exudates, nose normal. [] Eyes: PERRLA, EOMI, conjunctiva normal, no discharge. [] Neck: Normal range of motion, no stridor. [] Cardiovascular:Heart rate regular rhythm Lungs & Thorax: Bilateral breath sounds clear to auscultation, Respirations even and unlabored, no retractions, no respiratory distress [] Skin: Warm, dry, no erythema, no rash. [] Back: No tenderness Extremities: No cyanosis, ROM intact, no edema. [] Neurologic: Alert and oriented X 3, normal motor function, normal sensory functi on, no focal deficits noted. [] Psychologic: Affect normal, judgement normal, mood normal. [] (CASSANDRA PROCTOR APRN) Current Patient Data: Vital Signs: Vital Signs Date Time Temp Pulse Resp B/P (MAP) Pulse Ox O2 Delivery O2 Flow Rate FiO2 07/06/19 13:15 98.5 85 16 173/95 (121) 97 Room Air 98.5 (CASSANDRA PROCTOR APRN) EKG: EKG: [] (CASSANDRA PROCTOR APRN) Radiology/Procedures: Radiology/Procedures: [] (CASSANDRA PROCTOR APRN) Course & Med Decision Making: Course & Med Decision Making Pertinent Labs and Imaging studies reviewed. (See chart for details) Dx: medical screening exam A medical screening exam was performed, patient was found to have no emergent medical condition. The patient eloped after talking with registration. [] [] (CASSANDRA PROCTOR APRN) Dragon Disclaimer: Dragon Disclaimer: This electronic medical record was generated, in whole or in part, using a voice recognition dictation system. (CASSANDRA PROCTOR APRN) Departure Departure Impression: Primary Impression: Encounter for medical screening examination Disposition: HOME, SELF-CARE (pt eloped after speaking to registration) Condition: STABLE Referrals: ZACHARY SMITH MD (PCP) Patient Instructions: Medical Screening Exam Attending Signature Attending Signature I have reviewed the PA/IN STORE DEMONSTRATOR's note and plan of care. I was available for consultation as needed during the patient's visit in the emergency department. I agree with the clinical impression, plan, and disposition. (MARK WILLIAMSON DO) CASSANDRA PROCTOR APRN Jul 06, 2019 13:28 MARK WILLIAMSON DO Jul 06, 2019 23:21
[2019-07-06 13:30] VITALS: BP 162/85
== END 2019-07-06 13:31 | disposition home or self-care (01) ==
LOC: ER 12:59
DX: G43.909 Migraine, unspecified, not intractable, without status migrainosus (principal); I10 Essential (primary) hypertension; Z76.0 Encounter for issue of repeat prescription; G89.29 Other chronic pain; Z88.8 Allergy status to other drugs, medicaments and biological substances
CPT/HCPCS: 99281

== ENCOUNTER 2019-10-23 01:22 | Emergency (ER) | payer SELFPAY ==
[~2019-10-23] VITALS: Ht 170.2 cm; Wt 64.0 kg
[2019-10-23 02:10] VITALS: BP 136/91
--- NOTE | 2019-10-23 03:11 | PHYS DOC ---
Past Medical History Past Medical History: Hypertension, Migraines, Other Additional Past Medical Histor: Muscle Spasms, left leg wound Past Surgical History: Other Additional Past Surgical Histo: wound debridment L leg Smoking Status: Never Smoker Alcohol Use: None Drug Use: None General Adult EDM: Chief Complaint: HEADACHE HPI: HPI: Patient is a 48 year old female who presents with complaints of headache. She says it started a couple hours ago. It first started on the left side of her head and then went into her left neck and now is bilateral. She reports photophobia, nausea and describes the headache as pounding. She reports that this is generally how her headaches occur. She denied any fever, chills, cough, shortness of breath, chest pain, abdominal pain or vomiting. Review of Systems: Review of Systems: Constitutional: Denies fever or chills. [] Eyes: Denies change in visual acuity. [] HENT: Denies nasal congestion or sore throat. [] Respiratory: Denies cough or shortness of breath. [] Cardiovascular: Denies chest pain or edema. [] GI: Denies abdominal pain, nausea, vomiting, bloody stools or diarrhea. [] : Denies dysuria. [] Musculoskeletal: Denies back pain or joint pain. [] Integument: Denies rash. [] Neurologic: Denies headache, focal weakness or sensory changes. [] Endocrine: Denies polyuria or polydipsia. [] Lymphatic: Denies swollen glands. [] Psychiatric: Denies depression or anxiety. [] Heart Score: Risk Factors: Risk Factors: DM, Current or recent (<one month) smoker, HTN, HLP, family history of CAD, obesity. Risk Scores: Score 0 - 3: 2.5% MACE over next 6 weeks - Discharge Home Score 4 - 6: 20.3% MACE over next 6 weeks - Admit for Clinical Observation Score 7 - 10: 72.7% MACE over next 6 weeks - Early Invasive Strategies Allergies: Allergies: Allergies Coded Allergies Type Severity Reaction Last Updated Verified sumatriptan Adverse Reaction Intermediate 12/02/16 Yes Physical Exam: PE: Constitutional: Well developed, well nourished, no acute distress, non-toxic appearance. [] HENT: Normocephalic, atraumatic, bilateral external ears normal, oropharynx moist, no oral exudates, nose normal. [] Eyes: PERRLA, EOMI, conjunctiva normal, no discharge. [] Neck: Normal range of motion, no tenderness, supple, no stridor. [] Cardiovascular:Heart rate regular rhythm, no murmur [] Lungs & Thorax: Bilateral breath sounds clear to auscultation [] Abdomen: Bowel sounds normal, soft, no tenderness, no masses, no pulsatile masses. [] Skin: Warm, dry, no erythema, no rash. [] Neurologic: Alert and oriented X 3, normal motor function, normal sensory function, no focal deficits noted. [] Psychologic: Affect normal, judgement normal, mood normal. [] Current Patient Data: Vital Signs: Vital Signs Date Time Temp Pulse Resp B/P (MAP) Pulse Ox O2 Delivery O2 Flow Rate FiO2 10/23/19 02:10 97.8 95 18 136/91 (106) 100 Room Air 97.8 EKG: EKG: [] Radiology/Procedures: Radiology/Procedures: [] Course & Med Decision Making: Course & Med Decision Making Pertinent Labs and Imaging studies reviewed. (See chart for details) 0309-patient was seen and examined. Patient does not wish any IV treatment. She requested oral medications and a shot. I discussed with her reasons to return, treatment plan and need for follow-up. [] Dragon Disclaimer: Dragon Disclaimer: This electronic medical record was generated, in whole or in part, using a voice recognition dictation system. Departure Departure Impression: Primary Impression: Common migraine Qualified Codes: G43.009 - Migraine without aura, not intractable, without status migrainosus Disposition: HOME, SELF-CARE Condition: STABLE Referrals: ZACHARY SMITH MD (PCP) Patient Instructions: Recurrent Migraine Headache Additional Instructions: Follow-up with your PCP as planned Justicifation of Admission Dx: Justifications for Admission: Justification of Admission Dx: N/A MARI KOWALSKI MD Oct 23, 2019 03:11
[2019-10-23] MEDS ORDERED: METOCLOPRAMIDE 10 MG TABLET. PO ONE (03:30)
[2019-10-23] MEDS ORDERED: diphenhydrAMINE HCL 25 MG CAPSULE PO ONE (03:30)
[2019-10-23] MEDS ORDERED: KETOROLAC 60 MG/2 ML VIAL. IM ONE (03:30)
== END 2019-10-23 03:30 | disposition home or self-care (01) ==
LOC: ER 01:22
DX: G43.009 Migraine without aura, not intractable, without status migrainosus (principal); R11.0 Nausea; I10 Essential (primary) hypertension; Z98.890 Other specified postprocedural states; Z88.8 Allergy status to other drugs, medicaments and biological substances
CPT/HCPCS: 96372; 99283; J1885; Q0163

== ENCOUNTER 2020-02-07 15:57 | Emergency (ER) | payer OTHER ==
[~2020-02-07] VITALS: Ht 170.2 cm; Wt 65.0 kg
[~2020-02-07 15:57] MED LIST changes: +AMLO-186 PO; -AMLO5TAB10 PO
[2020-02-07 16:20] VITALS: BP 177/116
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
[2020-02-07] MEDS ORDERED: CYCL10TA2 PO (17:35)
[2020-02-07] MEDS ORDERED: NAPR-695 PO (17:35)
== END 2020-02-07 17:42 | disposition home or self-care (01) ==
LOC: ER 15:57
DX: S13.4XXA Sprain of ligaments of cervical spine, initial encounter (principal); M25.512 Pain in left shoulder; I10 Essential (primary) hypertension; G43.909 Migraine, unspecified, not intractable, without status migrainosus; Z98.890 Other specified postprocedural states; Z88.8 Allergy status to other drugs, medicaments and biological substances; V98.8XXA Other specified transport accidents, initial encounter; Y93.89 Activity, other specified; Y92.89 Other specified places as the place of occurrence of the external cause; Y99.8 Other external cause status
CPT/HCPCS: 72125; 73030; 99284

== ENCOUNTER 2020-02-14 11:40 | Emergency (ER) | payer OTHER ==
[~2020-02-14] VITALS: Ht 170.2 cm; Wt 65.0 kg
[~2020-02-14 11:40] MED LIST changes: +CYCL10TA2 PO; +NAPR-695 PO
[2020-02-14 12:07] VITALS: BP 165/85
[2020-02-14] MEDS ORDERED: HYDR-3164 PO (12:56)
[2020-02-14] MEDS ORDERED: CYCL10TA2 PO (12:56)
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
[2020-02-14] MEDS: CYCLOBENZAPRINE 10 MG TABLET. PO ONE (13:01)
[2020-02-14] MEDS: HYDROcodone/APAP 5/325MG 1 TAB TABLET PO ONE (13:01)
== END 2020-02-14 13:12 | disposition home or self-care (01) ==
LOC: ER 11:40
DX: M43.6 Torticollis (principal); G43.909 Migraine, unspecified, not intractable, without status migrainosus; I10 Essential (primary) hypertension; Z88.8 Allergy status to other drugs, medicaments and biological substances
CPT/HCPCS: 99283

== ENCOUNTER 2020-07-23 23:09 | Emergency (ER) | payer SELFPAY ==
[~2020-07-23] VITALS: Ht 170.2 cm; Wt 66.4 kg
[~2020-07-23 23:09] MED LIST changes: +AMLO-187 PO
--- NOTE | 2020-07-24 00:22 | PHYS DOC ---
Past Medical History Past Medical History: High Cholesterol, Hypertension, Migraines, Other Additional Past Medical Histor: Muscle Spasms, left leg wound Past Surgical History: Other Additional Past Surgical Histo: wound debridment L leg Smoking Status: Never Smoker Alcohol Use: None Drug Use: None General Adult EDM: Chief Complaint: MULTIPLE COMPLAINTS HPI: HPI: Patient is a 49yo femlae here for migraine. This is a chronic issue for her. Recently relocated from [place] and reports using Tramadol and sole means of m igraine abortive therapy. Admits classic migraine headache that is typical for her without any concerning symptoms, motor/sensory function changes or neurologic deficits. She is also requesting tramadol prescription Review of Systems: Review of Systems: Fourteen body systems of review of systems have been reviewed. See HPI for pertinent positives and negative responses, other barton all other systems are negative, non-pertinent or non-contributory Heart Score: C/O Chest Pain: No Risk Factors: Risk Factors: DM, Current or recent (<one month) smoker, HTN, HLP, family history of CAD, obesity. Risk Scores: Score 0 - 3: 2.5% MACE over next 6 weeks - Discharge Home Score 4 - 6: 20.3% MACE over next 6 weeks - Admit for Clinical Observation Score 7 - 10: 72.7% MACE over next 6 weeks - Early Invasive Strategies Allergies: Allergies: Allergies Coded Allergies Type Severity Reaction Last Updated Verified sumatriptan Adverse Reaction Intermediate 12/02/16 Yes Physical Exam: PE: Constitutional: Well developed, well nourished, no acute distress, non-toxic appearance. HENT: Normocephalic, atraumatic, bilateral external ears normal, oropharynx moist, no oral exudates, nose normal. Eyes: PERRLA, EOMI, conjunctiva normal, no discharge. Neck: Normal range of motion, no tenderness, supple, no stridor. No meningeal signs Cardiovascular: Heart rate regular, sinus rhythm, no murmurs rubs or gallops Lungs & Thorax: Bilateral breath sounds clear to auscultation Abdomen: Bowel sounds normal, soft, no tenderness, no masses, no pulsatile masses. Nonsurgical abdomen, no peritoneal signs Skin: Warm, dry, no erythema, no rash. Back: No tenderness, no CVA tenderness. Extremities: No tenderness, no cyanosis, no clubbing, ROM intact, no edema. Neurologic: Alert and oriented X 3, CN 2-12 intact, normal motor & sensory function, no focal deficits noted. Psychologic: Affect normal, judgement normal, mood normal. Current Patient Data: Vital Signs: Vital Signs Date Time Temp Pulse Resp B/P (MAP) Pulse Ox O2 Delivery O2 Flow Rate FiO2 07/24/20 00:04 98.4 78 20 139/83 (101) 100 Room Air 98.4 Vital Signs Date Time Temp Pulse Resp B/P (MAP) Pulse Ox O2 Delivery O2 Flow Rate FiO2 07/24/20 03:24 70 16 116/75 (89) 100 Room Air 07/24/20 00:04 98.4 98.4 EKG: EKG: EKG ordered and interpreted by myself at 001 1 hours as sinus rhythm at 69 bpm, unremarkable intervals, no axis deviation, T wave inversions noted in leads II, 3, aVF, V3, no STEMI Radiology/Procedures: Radiology/Procedures: [] Course & Med Decision Making: Course & Med Decision Making VSS, HPI and PE non-concerning for emergent/surgical issues Offered migraine cocktail, patient deferred IV placement PO benadryl, compazine and IM Toradol administered with improvement in symptoms I reviewed [facility] history, I denied patient's request for Tramadol prescription. I advised NSAID/tylenol use for abortive migraine therapy and need to follow-up with PCP and potentially neurologist Strict return precautions discussed with good understanding prior to departure Kenan Disclaimer: Kenan Disclaimer: This electronic medical record was generated, in whole or in part, using a voice recognition dictation system. Departure Departure Impression: Primary Impression: Migraine headache Disposition: HOME / SELF CARE / HOMELESS Condition: IMPROVED Referrals: ZACHARY SMITH MD (PCP) Patient Instructions: Migraine Headache Additional Instructions: You were seen for a headache. Your symptoms improved with pain medication, and anti-nausea medication, and Benadryl to prevent any adverse reaction from said nausea medication. As mention, you need to contact your primary care physician immediately after your departure to review your ER visit. You should return to the ED if you develop worsening pain, vision change, numbness, tingling, weakness, vomiting, fever, neck pain, or any other new or concerning symptoms. SNOW CERVANTES DO July 24, 2020 00:22
[2020-07-24] MEDS: diphenhydrAMINE 50 MG/ML VIAL IVP ONE (00:30)
[2020-07-24] MEDS: PROCHLORPERAZINE 10 MG/2 ML VIAL. IV ONE (00:30)
[2020-07-24] MEDS: IV NORMAL SALINE 1000ML BAG 1,000 ML IV ONE (00:30)
[2020-07-24] MEDS: KETOROLAC 15 MG/ML VIAL. IVP ONE (00:30)
[2020-07-24 02:04] LABS: U PREG PATIENT NEGATIVE (NEG)
[2020-07-24] MEDS: KETOROLAC 60 MG/2 ML VIAL. IM ONE (02:38)
[2020-07-24] MEDS: diphenhydrAMINE HCL 25 MG CAPSULE PO ONE (02:38)
[2020-07-24] MEDS: PROCHLORPERAZINE 10 MG/2 ML VIAL. IM ONE (02:42)
[2020-07-24 03:24] VITALS: BP 116/75
--- NOTE | 2020-07-24 07:39 | EKG ---
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
== END 2020-07-24 04:05 | disposition home or self-care (01) ==
LOC: ER 23:09
DX: G43.909 Migraine, unspecified, not intractable, without status migrainosus (principal); E78.00 Pure hypercholesterolemia, unspecified; I10 Essential (primary) hypertension; Z88.8 Allergy status to other drugs, medicaments and biological substances
CPT/HCPCS: 36415; 81025; 93005; 96372; 99285; J0780; J1885; Q0163

== ENCOUNTER 2020-12-01 15:57 | Emergency (ER) | payer SELFPAY ==
[~2020-12-01] VITALS: Ht 170.2 cm; Wt 63.2 kg
[~2020-12-01 15:57] MED LIST changes: +DOXY-181 PO; -DOXY100C14 PO
[2020-12-01 16:00] VITALS: BP 150/95
--- NOTE | 2020-12-01 16:26 | PHYS DOC ---
Past Medical History Past Medical History: High Cholesterol, Hypertension, Migraines, Other Additional Past Medical Histor: Muscle Spasms, left leg wound Past Surgical History: Other Additional Past Surgical Histo: wound debridment L leg Smoking Status: Never Smoker Alcohol Use: None Drug Use: None General Adult EDM: Chief Complaint: MEDICATION REFILL HPI: HPI: Patient is a 50-year-old female who presents to the emergency department asking for a refill of her 50 mg tramadol medication regimen. Patient reports she ac cidentally dropped her model into the sink and all of her pills with down the drain. Patient reports her primary care physician is unable to get her in soon for a refill. Patient states she is having a mild frontal migraine typical of her other migraines. Denies thunderclap onset. Denies this being the worst headache of her life, reports a 5 out of 10 pain. Patient denies any other physical complaints or physical concerns. Review of Systems: Review of Systems: 14 body systems of review of systems have been reviewed. See HPI for pertinent positives and negative responses, otherwise all other systems are negative, nonpertinent or noncontributory. Constitutional: Negative except as outlined in HPI above. Skin: Negative except as outlined in HPI above. Eyes: Negative except as outlined in HPI above. HENT: Negative except as outlined in HPI above. Respiratory: Negative except as outlined in HPI above. Cardiovascular: Negative except as outlined in HPI above. GI: Negative except as outlined in HPI above. : Negative except as outlined in HPI above. Musculoskeletal: Negative except as outlined in HPI above. Integument: Negative except as outlined in HPI above. Neurologic: Negative except as outlined in HPI above. Endocrine: Negative except as outlined in HPI above. Lymphatic: Negative except as outlined in HPI above. Psychiatric: Negative except as outlined in HPI above. Heart Score: C/O Chest Pain: No Risk Factors: Risk Factors: DM, Current or recent (<one month) smoker, HTN, HLP, family history of CAD, obesity. Risk Scores: Score 0 - 3: 2.5% MACE over next 6 weeks - Discharge Home Score 4 - 6: 20.3% MACE over next 6 weeks - Admit for Clinical Observation Score 7 - 10: 72.7% MACE over next 6 weeks - Early Invasive Strategies Allergies: Allergies: Allergies Coded Allergies Type Severity Reaction Last Updated Verified sumatriptan Adverse Reaction Intermediate 12/02/16 Yes Physical Exam: PE: Constitutional: Well developed, well nourished, no acute distress, non-toxic appearance. 50-year-old female in no apparent distress. HENT: Normocephalic, atraumatic. Eyes: Conjunctiva normal, no discharge. Neck: Normal range of motion, no stridor. Cardiovascular: No cyanosis appreciated, distal cap refill less than 2 seconds. Lungs & Thorax: Patient is in no respiratory distress, no audible adventitious lung sounds appreciated. Abdomen: Nontender, no abnormalities noted. Skin: Warm, dry, no erythema, no rash. Back: No tenderness, no deformities. Extremities: No tenderness, no cyanosis, no clubbing, ROM intact, no edema. Neurologic: Alert and oriented X 3, normal motor function, normal sensory function, no focal deficits noted. Psychologic: Affect normal, judgement normal, mood normal. EKG: EKG: [] Radiology/Procedures: Radiology/Procedures: [] Course & Med Decision Making: Course & Med Decision Making Pertinent Labs and Imaging studies reviewed. (See chart for details) 50-year-old female, vital signs reviewed, presents emergency department concerning needing a medication refill for her tramadol and also having a migraine headache. Physical examination is unremarkable, after extensive chart review and K tracts reviewed, patient recently received 60 tablets of 50 mg tramadol, there has been past concerns for drug-seeking behavior. Discussed with patient will give 1 tablet of tramadol today in the emergency department and discharged home without prescription, patient is amenable to this plan, discussed with patient strict follow-up with primary care tomorrow to have home migraine medication refilled, discussed with patient need to follow-up with neurologist for ongoing chronic migraine. Patient states she will call her doctor at tomorrow. patient is amenable with discharge planning. Dragon Disclaimer: Dragon Disclaimer: This electronic medical record was generated, in whole or in part, using a voice recognition dictation system. Departure Departure Impression: Primary Impression: Headache Qualified Codes: R51.9 - Headache, unspecified Additional Impression: Drug-seeking behavior Disposition: HOME / SELF CARE / HOMELESS Condition: GOOD Referrals: ZACHARY SMITH MD (PCP) Patient Instructions: Headache, FAQs Additional Instructions: You were seen today in the emergency department for headache and requesting a refill for your tramadol medication. As we discussed, please call your doctor tomorrow to discuss your tramadol medication prescription for a refill. You were given 1 tablet today in the emergency department. Thank you for visiting our Emergency Department. It was a pleasure taking care of you today in the emergency department and we appreciate you trusting us with your care. If any additional problems come up don't hesitate to return to visit us. Please follow up with your primary care provider so they can plan additional care if needed and know about the problem that you had. If symptoms worsen come back to the Emergency Department. Any concerning symptoms that start such as chest pain, shortness of air, weakness or numbness on one side of the body, running high fevers or any other concerning symptoms return to the ER. MARK QUINTERO APRN Dec 01, 2020 16:26
[2020-12-01] MEDS ORDERED: traMADol 50 MG TABLET PO ONE (17:00)
== END 2020-12-01 16:45 | disposition home or self-care (01) ==
LOC: ER 15:57
DX: G43.909 Migraine, unspecified, not intractable, without status migrainosus (principal); Z76.5 Malingerer [conscious simulation]; E78.00 Pure hypercholesterolemia, unspecified; I10 Essential (primary) hypertension; Z88.8 Allergy status to other drugs, medicaments and biological substances
CPT/HCPCS: 99283

== ENCOUNTER 2021-03-20 14:02 | Emergency (ER) | payer SELFPAY ==
[~2021-03-20] VITALS: Ht 162.6 cm; Wt 69.0 kg
[~2021-03-20 14:02] MED LIST changes: +CYCL10TA19 PO; -CYCL10TA2 PO; -LISI1TAB20 PO; +LISI1TAB39 PO
[2021-03-20 14:32] VITALS: BP 143/85
--- NOTE | 2021-03-20 14:57 | PHYS DOC ---
Past Medical History Past Medical History: High Cholesterol, Hypertension, Migraines, Other Additional Past Medical Histor: Muscle Spasms, left leg wound Past Surgical History: No Surgical History Additional Past Surgical Histo: wound debridment L leg Smoking Status: Never Smoker Alcohol Use: None Drug Use: None General Adult EDM: Chief Complaint: HEADACHE HPI: HPI: Patient is a 50 year old female who presents with states she has been having migraine headaches and currently rates her pain at a 7 out of 10. She states all she is wanting today is tramadol refill. She states that her doctor, Dr Smith cannot see her for 2 to 3 weeks. She states she feels like she is about to withdrawal off the medication. She denies vision change, nausea, vomiting, diarrhea, numbness or tingling, focal weakness, neck pain, fever, chest pain, shortness of breath. She has a history of migraine, hypertension, high cholesterol, muscle spasms, leg wound surgery. Review of Systems: Review of Systems: Constitutional: Denies fever or chills. [] Eyes: Denies change in visual acuity. [] HENT: Denies nasal congestion or sore throat. [] Respiratory: Denies cough or shortness of breath. [] Cardiovascular: Denies chest pain or edema. [] GI: Denies abdominal pain, nausea, vomiting, bloody stools or diarrhea. [] : Denies dysuria. [] Musculoskeletal: Denies back pain or joint pain. [] Integument: Denies rash. [] Neurologic: +headache, denies focal weakness or sensory changes. [] Endocrine: Denies polyuria or polydipsia. [] Lymphatic: Denies swollen glands. [] Psychiatric: Denies depression or anxiety. [] Heart Score: C/O Chest Pain: No Allergies: Allergies: Allergies Coded Allergies Type Severity Reaction Last Updated Verified sumatriptan Adverse Reaction Intermediate 03/20/21 Yes Physical Exam: PE: Constitutional: Well developed, well nourished, no acute distress, non-toxic appearance. [] HENT: Normocephalic, atraumatic, bilateral external ears normal, oropharynx moist, no oral exudates, nose normal. [] Eyes: PERRLA, EOMI, conjunctiva normal, no discharge. [] Neck: Normal range of motion, no tenderness, supple, no stridor. [] Cardiovascular:Heart rate regular rhythm, no murmur [] Lungs & Thorax: Bilateral breath sounds clear to auscultation [] Abdomen: Bowel sounds normal, soft, no tenderness, no masses, no pulsatile masses. [] Skin: Warm, dry, no erythema, no rash. [] Back: No tenderness, no CVA tenderness. [] Extremities: No tenderness, no cyanosis, no clubbing, ROM intact, no edema. [] Neurologic: Alert and oriented X 3, normal motor function, normal sensory function, no focal deficits noted. [] Psychologic: Affect normal, judgement normal, mood normal. [] Normal physical exam Current Patient Data: Vital Signs: Vital Signs Date Time Temp Pulse Resp B/P (MAP) Pulse Ox O2 Delivery O2 Flow Rate FiO2 03/20/21 14:32 98.2 100 15 143/85 (104) 98 Room Air 98.2 EKG: EKG: [] Radiology/Procedures: Radiology/Procedures: [] Course & Med Decision Making: Course & Med Decision Making Pertinent Labs and Imaging studies reviewed. (See chart for details) See HPI. Alert and oriented x4. Ambulatory steady gait. Skin [place] warm and dry. I did look patient up on [facility] and less than a month ago she received 120 Percocet and then couple weeks ago she received 10 tramadol. PERRLA. Speaks in full clear sentences. In no distress. Abdomen soft and nontender. Lungs are clear to auscultation all lobes. Skin pink warm and dry. No nystagmus. Patient states she feels like this is her normal chronic headache. She states is intermittent. It is not the worst headache she is ever had. Denies any kind of syncope or vision change. Denies dizziness. [] Dragon Disclaimer: Dragon Disclaimer: This electronic medical record was generated, in whole or in part, using a voice recognition dictation system. Departure Departure Impression: Primary Impression: Headache Qualified Codes: R51.9 - Headache, unspecified Additional Impression: Medication refill Disposition: HOME / SELF CARE / HOMELESS Condition: STABLE Referrals: ZACHARY SMITH MD (PCP) Patient Instructions: Migraine Headache Additional Instructions: Follow up with your primary care physician. Drink plenty of fluids. Some medications can make you sleepy so do not drink alcohol or drive while on these medications. Scripts Tramadol Hcl (TRAMADOL HCL) 50 Mg Tablet 50 MG PO Q6HRS PRN for PAIN, #10 TAB Prov: BERNA KHAN APRN 03/20/21 BERNA KHAN APRN Mar 20, 2021 14:57
[2021-03-20] MEDS ORDERED: TRAM50TA PO (15:15)
== END 2021-03-20 15:53 | disposition home or self-care (01) ==
LOC: ER 14:02
DX: G43.909 Migraine, unspecified, not intractable, without status migrainosus (principal); I10 Essential (primary) hypertension; E78.00 Pure hypercholesterolemia, unspecified; Z88.8 Allergy status to other drugs, medicaments and biological substances
CPT/HCPCS: 99281; 99283

== ENCOUNTER 2021-04-26 16:06 | Emergency (ER) | payer SELFPAY ==
[~2021-04-26] VITALS: Ht 170.2 cm; Wt 58.2 kg
[2021-04-26 16:07] VITALS: BP 119/80
--- NOTE | 2021-04-26 16:29 | PHYS DOC ---
Past Medical History Past Medical History: High Cholesterol, Hypertension, Migraines, Other Additional Past Medical Histor: Muscle Spasms, left leg wound (KHLOENATHAN DRY CLEANING MACHINE OPERATOR) Past Surgical History: No Surgical History Additional Past Surgical Histo: wound debridment L leg (KHLOENATHAN Poe DRY CLEANING MACHINE OPERATOR) Smoking Status: Never Smoker Alcohol Use: None Drug Use: None (KHLOENATHAN DRY CLEANING MACHINE OPERATOR) General Adult EDM: Chief Complaint: MEDICATION REFILL HPI: HPI: Patient is a 50 year old female with history of hypertension, migraine headaches, high cholesterol, presented to the ED today requesting a refill of tramadol. Patient states she takes it for her migraine headaches. Patient states she has been out of the medicine for 3 weeks and believes she is going through withdrawals. She states she has a 9 out of 10 generalized migraine headache with nausea. Denies any vomiting. Denies any palpitations or tachycardia. Denies any diarrhea or abdominal pain. She states she has an appointment with her PCP at in 2 weeks for a refill. Denies this being the worst headache in her life. Reports this being a gradual onset of her regular migraine headache. Reports using [id number] remedies with no relief. (NATHAN LEDBETTER DRY CLEANING MACHINE OPERATOR) Review of Systems: Review of Systems: Constitutional: Denies fever or chills. [] Eyes: Denies change in visual acuity. [] HENT: Denies nasal congestion or sore throat. [] Respiratory: Denies cough or shortness of breath. [] Cardiovascular: Denies chest pain or edema. [] GI: Reports nausea. Denies abdominal pain, vomiting, bloody stools or diarrhea. [] : Denies dysuria. [] Musculoskeletal: Denies back pain or joint pain. [] Integument: Denies rash. [] Neurologic: Reports migraine headache, denies focal weakness or sensory changes. [] Psychiatric: Denies depression or anxiety. [] (NATHAN LEDBETTER DRY CLEANING MACHINE OPERATOR) Heart Score: C/O Chest Pain: N/A Risk Factors: Risk Factors: DM, Current or recent (<one month) smoker, HTN, HLP, family history of CAD, obesity. Risk Scores: Score 0 - 3: 2.5% MACE over next 6 weeks - Discharge Home Score 4 - 6: 20.3% MACE over next 6 weeks - Admit for Clinical Observation Score 7 - 10: 72.7% MACE over next 6 weeks - Early Invasive Strategies (NATHAN LEDBETTER DRY CLEANING MACHINE OPERATOR) Allergies: Allergies: Allergies Coded Allergies Type Severity Reaction Last Updated Verified sumatriptan Adverse Reaction Intermediate 03/20/21 Yes (NATHAN LEDBETTER DRY CLEANING MACHINE OPERATOR) Physical Exam: PE: Constitutional: Well developed, well nourished, no acute distress, non-toxic appearance. [] HENT: Normocephalic, atraumatic, bilateral external ears normal, oropharynx moist, no oral exudates, nose normal. [] Eyes: PERRLA, EOMI, conjunctiva normal, no discharge. [] Neck: Normal range of motion, no tenderness, supple, no stridor. [] Cardiovascular:Heart rate regular rhythm, no murmur [] Lungs & Thorax: Bilateral breath sounds clear to auscultation [] Abdomen: Bowel sounds normal, soft, no tenderness, no masses, no pulsatile masses. [] Skin: Warm, dry, no erythema, no rash. [] Back: No tenderness, no CVA tenderness. [] Extremities: No tenderness, no cyanosis, no clubbing, ROM intact, no edema. [] Neurologic: Alert and oriented X 3, normal motor function, normal sensory fun ction, no focal deficits noted. Cranial nerves II through XII intact Psychologic: Affect normal, judgement normal, mood normal. [] (NATHAN LEDBETTER DRY CLEANING MACHINE OPERATOR) Current Patient Data: Vital Signs: Vital Signs Date Time Temp Pulse Resp B/P (MAP) Pulse Ox O2 Delivery O2 Flow Rate FiO2 04/26/21 16:07 98.0 80 16 119/80 (93) 99 Room Air 98.0 (NATHAN LEDBETTER DRY CLEANING MACHINE OPERATOR) EKG: EKG: [] (NATHAN LEDBETTER DRY CLEANING MACHINE OPERATOR) Radiology/Procedures: Radiology/Procedures: [] (NATHAN LEDBETTER DRY CLEANING MACHINE OPERATOR) Course & Med Decision Making: Course & Med Decision Making Pertinent Labs and Imaging studies reviewed. (See chart for details) This a 50-year-old female patient presented to the ED today complaining of migraine headache. She takes tramadol, she has been out of the medicine for 3 weeks. Reports she has an appointment with her PCP at [facility] in 2 weeks for refills. D/c with tramadol 14 tablets to use one daily for 14 days (NATHAN LEDBETTER APRN) Course & Med Decision Making I have reviewed the PA/PRODUCTION OPERATIONS INSPECTOR's note and plan of care. I was available for consultation as needed during the patient's visit in the emergency department. (ASHVIN RAYO MD) Dragon Disclaimer: Dragon Disclaimer: This electronic medical record was generated, in whole or in part, using a voice recognition dictation system. (NATHAN LEDBETTER APRN) Departure Departure Impression: Primary Impression: Migraine headache Qualified Codes: G43.909 - Migraine, unspecified, not intractable, without status migrainosus Additional Impression: Medication refill Disposition: HOME / SELF CARE / HOMELESS Condition: STABLE Referrals: ZACHARY SMITH MD (PCP) follow up as soon as you can Patient Instructions: Migraine Headache Additional Instructions: You were evaluated in the emergency room, we highly recommend you as seen by your own PCP as soon as you can. Scripts Tramadol Hcl (TRAMADOL HCL) 50 Mg Tablet 50 MG PO DAILY PRN for PAIN, #14 TAB 0 Refills Prov: NATHAN LEDBETTER APRN 04/26/21 NATHAN LEDBETTER APRN Apr 26, 2021 16:29 ASHVIN RAYO MD Apr 27, 2021 16:16
[2021-04-26] MEDS ORDERED: TRAM50TA PO (16:31)
== END 2021-04-26 16:53 | disposition home or self-care (01) ==
LOC: ER 16:06
DX: G43.909 Migraine, unspecified, not intractable, without status migrainosus (principal); I10 Essential (primary) hypertension; E78.00 Pure hypercholesterolemia, unspecified; Z88.8 Allergy status to other drugs, medicaments and biological substances
CPT/HCPCS: 99281